=== PATIENT | female | born 1955 | race Caucasian/White ===

== ENCOUNTER 2019-11-03 06:42 | Observation (INO) ==
--- NOTE | 2019-10-24 14:53 | PAT Medication Instructions ---
Medication Instructions Date of Service October 24, 2019 Home Medications azelastine 0.15 % (205.5 mcg) nasal spray 1 sprays INTNAS BID fluoxetine 10 mg capsule 10 mg PO QAM fluticasone propionate 50 mcg/actuation nasal spray,suspension 1 sprays INTNAS BID montelukast 10 mg tablet 10 mg PO QAM calcium carbonate 500 mg calcium (1,250 mg) chewable tablet 1,000 mg PO QPM omeprazole 20 mg capsule,delayed release 20 mg PO QAM polyethylene glycol 3350 1 dose PO UD PRN sodium chloride 0.65 % nasal spray aerosol 2 sprays INTNAS QID PRN acetaminophen [Tylenol Extra Strength] 500 mg PO Q6H PRN albuterol sulfate 1 puff INHALATION QID PRN fluticasone propion-salmeterol [Advair HFA] 2 puff INHALATION BID lisinopril 20 mg PO QAM ondansetron HCl [Zofran] 4 - 8 mg PO Q6H PRN DO NOT take the morning of surgery montelukast 10 mg tablet 10 mg PO QAM lisinopril 20 mg PO QAM polyethylene glycol 3350 1 dose PO UD PRN Take morning of surgery With a small sip of water, OTHERWISE NOTHING TO EAT OR DRINK AFTER MIDNIGHT: azelastine 0.15 % (205.5 mcg) nasal spray 1 sprays INTNAS BID fluoxetine 10 mg capsule 10 mg PO QAM fluticasone propionate 50 mcg/actuation nasal spray,suspension 1 sprays INTNAS BID omeprazole 20 mg capsule,delayed release 20 mg PO QAM sodium chloride 0.65 % nasal spray aerosol 2 sprays INTNAS QID PRN (if needed) acetaminophen [Tylenol Extra Strength] 500 mg PO Q6H PRN (okay to take up to 4 hours prior to surgery if needed) albuterol sulfate 1 puff INHALATION QID PRN (use if needed; please bring with you to hospital day of surgery if possible) fluticasone propion-salmeterol [Advair HFA] 2 puff INHALATION BID ondansetron HCl [Zofran] 4 - 8 mg PO Q6H PRN (if needed) Take evening before surgery azelastine 0.15 % (205.5 mcg) nasal spray 1 sprays INTNAS BID fluoxetine 10 mg capsule 10 mg PO QAM fluticasone propionate 50 mcg/actuation nasal spray,suspension 1 sprays INTNAS BID calcium carbonate 500 mg calcium (1,250 mg) chewable tablet 1,000 mg PO QPM polyethylene glycol 3350 1 dose PO UD PRN (if needed) sodium chloride 0.65 % nasal spray aerosol 2 sprays INTNAS QID PRN (if needed) acetaminophen [Tylenol Extra Strength] 500 mg PO Q6H PRN (if needed) albuterol sulfate 1 puff INHALATION QID PRN (if needed) fluticasone propion-salmeterol [Advair HFA] 2 puff INHALATION BID ondansetron HCl [Zofran] 4 - 8 mg PO Q6H PRN (if needed) Other Notes If you have any questions please call us at [phone] or [phone] or [phone] or [phone]
--- NOTE | 2019-10-27 11:07 | Anesthesiology Consultation ---
Date of Service October 27, 2019 Assessment & Plan (1) Encounter for pre-operative examination: COVID Status: As of 10/26 assessment, patient denies travel to endemic area, known exposure/sick contacts, or symptoms of COVID19. Patient instructed that they and their household members must follow strict social distancing guidelines, wear a mask in public and avoid travel for 14 days prior to surgery. Preoperative COVID19 testing to be completed prior to surgery per surgeon's arrangements. Patient made aware to self-isolate as much as possible between COVID testing and surgery. *Patient with recent L sided rib fractures s/p mechanical fall (evaluated in ED, led to discovery of renal mass). CAUTION WITH POSITIONING. Chart Review Chart Review: Acceptable Risk for Surgery and Patient seen in Pre Admission Testing Teaching & Discussion Instructed NPO after midnight before surgery, except medications with 15 cc of water. Medication instructions provided according to the PAT guidelines. History Surgery Operation Date: 11/03/19 09:35 Proposed Procedures p Right Robotic Laparoscopic Assisted Partial Nephrectomy - Mike Wheeler, Height/Weight Height: 5 ft 4 in Weight: 109.769 kg Allergies Allergy/AdvReac Type Severity Reaction Status Date / Time No Known Allergies Allergy Verified 10/19/19 12:20 Medications Home Medications Medication Instructions Recorded Confirmed Last Taken azelastine 0.15 % (205.5 mcg) 1 sprays INTNAS BID 10/07/19 10/19/19 Unknown nasal spray fluoxetine 10 mg capsule 10 mg PO QAM 10/07/19 10/19/19 Unknown fluticasone propionate 50 1 sprays INTNAS BID 10/07/19 10/19/19 Unknown mcg/actuation nasal spray,suspension montelukast 10 mg tablet 10 mg PO QAM 10/07/19 10/19/19 Unknown calcium carbonate 500 mg calcium 1,000 mg PO QPM tab 10/12/19 10/19/19 Unknown (1,250 mg) chewable tablet omeprazole 20 mg capsule,delayed 20 mg PO QAM 10/12/19 10/19/19 Unknown release polyethylene glycol 3350 1 dose PO UD PRN 10/12/19 10/19/19 Unknown sodium chloride 0.65 % nasal spray 2 sprays INTNAS QID PRN 10/12/19 10/19/19 Unknown aerosol acetaminophen [Tylenol Extra 500 mg PO Q6H PRN 10/19/19 10/19/19 Unknown Strength] albuterol sulfate 1 puff INHALATION QID PRN 10/19/19 10/19/19 Unknown fluticasone propion-salmeterol 2 puff INHALATION BID 10/19/19 10/19/19 Unknown [Advair HFA] lisinopril 20 mg PO QAM 10/19/19 10/19/19 Unknown ondansetron HCl [Zofran] 4 - 8 mg PO Q6H PRN 10/19/19 10/19/19 Unknown Past Medical History Medical History (Updated 10/28/19 @ 10:34 by Sher Rose) Anxiety Asthma uses PRN INH at least once per day, Advair BID Benign thyroid cyst Constipation Depression Fall recent fall 10/01/2019 - tripped over dog -- left rib fractures GERD (gastroesophageal reflux disease) Hiatal hernia HTN (hypertension) Kidney mass Osteoarthritis Sleep apnea CPAP, not using at all for the past year due to sinus issues Tachycardia Recent workup by PCP included stress test and Zio patch. No sustained arrhythmias, few runs of SVT. No ischemia on stress echo. Exercise / Class Metabolic Activity II 4-5 Yardwork/Stairs/Walk up hill (Does 12 steps at home many times per day, some mild VILLALPANDO but denies any chest pain) Past Family History Family History Mother Nephrolithiasis Hypertension Other No family history of adverse response to anesthesia Past Surgical History Surgical History H/O section History of appendectomy History of cholecystectomy History of colonoscopy History of esophagogastroduodenoscopy (EGD) History of hysterectomy History of tooth extraction Nausea and vomiting after administration of anesthetic agent Past Anesthesia History No Hx of Anesthesia Complications (other than PONV) and No Family Hx of Anesthesia Complications History of PONV History of PONV and Hx of Motion Sickness Social History Smoking Status: Never smoker Do You Dip or Chew Tobacco: No Hx Alcohol Use: Yes Alcohol type: beer and wine alcohol intake frequency: a few times a month Hx Substance Use: No substance use type: does not use Review of Systems Pt denies any recent chest pain, shortness of breath, cough, fever, URI. +sinus drainage with reflexive cough, chronic; +palpitations occasionally; +acid reflux, improved with PPI but still has occasionally Physical Exam Vital Signs BP: 133/81 P: 108bpm SPO2: 96% RA T: 99.0 F R: 16 Constitutional + morbidly obese ENNM Mouth: + dental restorations (partials but does not wear); no chipped teeth and no loose teeth Thyromental Distance: > or= 3.5 Finger Breadths (3.5) Mallampati Class: I Neck normal visual inspection and + short neck; neck extension not limited Respiratory normal respiratory effort Auscultation: lungs clear to auscultation bilaterally Cardiovascular Rate/Rhythm: regular rhythm and + tachycardic Heart Sounds: no murmur Extremities: no edema Testing Laboratory Results 10/27/19 10:58 10/27/19 10:58 Blood Type A Negative 10/27/19 10:58 Antibody Screen NEGATIVE 10/27/19 10:58 Electrocardiogram Date: 10/05/19 Findings: + ST @ (102bpm) Chest X-Ray Date: 10/05/19 IMPRESSION: 1. Acute nondisplaced fracture of the anterior left sixth rib. Trace left pleural effusion without pneumothorax. 2. No acute intra-abdominal or intrapelvic abnormality. 3. Indeterminate ovoid soft tissue attenuating lesion of the left upper retrosternal tissues inferior to the left thyroid lobe measures approximately 3.0 cm in greatest dimension. Correlation with a follow-up nonemergent ultrasound is recommended to better characterize. 4. Enhancing lesion of the inferior pole right kidney measuring 2.1 x 2.3 is suggestive of a probable renal cell carcinoma. Urology consultation is needed. 5. Nonobstructing left nephrolithiasis. Stress Test Date: 09/06/19 Findings: no ischemia Resting EF: 65-69% Resting LV Function: normal
[2019-10-27 11:31] LABS: Basophils # (auto) 0.04 K/uL (0-0.2); Basophils % (auto) 0.5 %; Eosinophils # (auto) 0.06 K/uL (0-0.5); Eosinophils % (auto) 0.7 %; Hematocrit (blood only) 40.6 % (37-47); Hemoglobin 13.5 g/dL (12.0-16.0); Immature Granulocytes # (auto) 0.01 K/uL (0.00-0.02); Immature Granulocytes % (auto) 0.1 %; Lymphocytes # (auto) 2.05 K/uL (1.2-3.4); Lymphocytes % (auto) 25.5 %; Mean Corpuscular Hemoglobin 29.8 pg (25-34); Mean Corpuscular Hgb Conc 33.3 g/dL (32-36); Mean Corpuscular Volume 89.6 fL (80-100); Mean Platelet Volume 8.5 fL (7.4-10.4); Monocytes # (auto) 0.64 K/uL (0.11-0.59); Neutrophils # (auto) 5.25 K/uL (1.4-6.5); Neutrophils % (auto) 65.2 %; Platelet Count 260 K/uL (130-400); RDW Coefficient of Variation 13.4 % (11.5-14.5); RDW Standard Deviation 44.1 fL (36.4-46.3); Red Blood Count 4.53 M/uL (4.2-5.4); White Blood Count 8.05 K/uL (4.8-10.8)
[2019-10-27 12:53] LABS: Calcium 8.9 mg/dl (8.5-10.1); Creatinine Clr Calc Pharmacy 74.2 ml/min; Est GFR (African American) 74.8; Est GFR (Non-African American) 64.6; Potassium 4.2 mmol/L (3.5-5.1)
[~2019-11-03 06:42] MED LIST: CEFAZOLIN 2000MG 2,000 MG/15 ML SYR IV SCH; CHECK SCOPOLAMINE PATCH PLACEMENT SCH; LACTATED RINGER'S 1,000 ML IV SCH; LR 15ML/HR IV SCH; SCOPOLAMINE 1.5 MG TDSY TD SCH
[2019-11-03] MEDS ORDERED: MANNITOL 25% 12.5 GM/50 ML VIAL IV ONE ×2 (07:27→07:46)
[2019-11-03] MEDS ORDERED: LIDOCAINE HCL 2% 2 ML VIAL/AMP(20MG/ML) INFIL ONE (07:38)
[2019-11-03] MEDS ORDERED: ONDANSETRON INJ 2 MG/ML 2 ML VIAL ONE ×2 (07:38→10:13)
[2019-11-03] MEDS ORDERED: fentaNYL citrate 100 MCG/2 ML VIAL ONE ×2 (07:38→14:43)
[2019-11-03] MEDS ORDERED: MIDAZOLAM HCL 1 MG/ML 2ML VIAL ONE (07:38)
[2019-11-03] MEDS ORDERED: PROPOFOL IV EMULSION 10 MG/ML 20 ML VIAL IV ONE (07:38)
[2019-11-03] MEDS ORDERED: ROCURONIUM BROMIDE 10 MG/ML 5 ML VIAL IV ONE ×12 (07:39→12:09)
[2019-11-03] MEDS ORDERED: ATROPINE SULFATE 0.1 MG/ML 10ML SYR IV PRN (07:45)
[2019-11-03] MEDS ORDERED: ePHEDrine sulfate 50 MG/ML AMP IV PRN (07:45)
[2019-11-03] MEDS ORDERED: HYDROmorphone INJ 1 MG/ML SYRINGE IV PRN (07:45)
[2019-11-03] MEDS ORDERED: ONDANSETRON INJ 2 MG/ML 2 ML VIAL IV PRN (07:45)
[2019-11-03] MEDS ORDERED: SODIUM CHLORIDE 0.9% INJ 10 ML VIAL ONE (07:49)
--- NOTE | 2019-11-03 07:56 | History & Physical Bridge Note ---
Date of Service November 03, 2019 History & Physical Bridge Note I have examined the patient, reviewed the History & Physical and in the interval since the performance of the History & Physical I have noted the following changes of clinical significance: no changes noted
[2019-11-03] MEDS ORDERED: BUPIVACAINE 0.5 % 5 MG/1 ML MPF 30ML VIAL ONE (08:14)
[2019-11-03] MEDS ORDERED: ALBUMIN HUMAN 5% 12.5 GM/250 ML VIAL IV ONE (08:54)
[2019-11-03] MEDS ORDERED: PHENYLEPHRINE 100MCG/ML 5ML SYR ONE (09:55)
[2019-11-03] MEDS ORDERED: DEXAMETHASONE SOD INJ 4 MG/ML VIAL ONE ×2 (10:01)
[2019-11-03] MEDS ORDERED: ePHEDrine sulfate 50 MG/ML SYR ONE (10:05)
[2019-11-03] MEDS ORDERED: NEOSTIGMINE METHYLSULFATE 5 MG/5 ML SYR ONE (10:13)
[2019-11-03] MEDS ORDERED: GLYCOPYRROLATE 0.2 MG/ML VIAL ONE (10:13)
[2019-11-03] MEDS ORDERED: HYDROmorphone INJ 2 MG/ML SYR/VIAL ONE (10:18)
[2019-11-03] MEDS ORDERED: TISSEEL FIBRIN SEALANT 4ML TOP ONE (11:12)
[2019-11-03] MEDS ORDERED: SURGICEL ABSORB HEMOSTAT 2IN X 14IN TOP ONE (11:58)
[2019-11-03] MEDS ORDERED: FLOSEAL HEMOSTATIC MATRIX 10ML TOP ONE (11:58)
--- NOTE | 2019-11-03 12:56 | Post Operative Brief Note ---
PG Immediate Post Op with CF Date of Surgery November 03, 2019 Pre & Post Diagnosis Operation Date: 11/03/19 08:15 Pre-Op Diagnosis: Right Kidney Mass Post-Op Diagnosis: Right Kidney Mass I identified the patient and participated in the time-out.: Yes Procedure Operation Date: 11/03/19 08:15 Actual Procedures p Robotic Assisted Laparoscopic Right Partial Nephrectomy and Extensive Lysis of Adhesions(Right) - Mike Wheeler, Surgeon Mike Wheeler, II, DO [employer] Estimated Blood Loss 100 Findings Consistent with Post-Op Diagnosis Specimens Specimen Description: A. Right renal mass Drains Mary Catheter and Stan-Jorge Drain (10mm FLat) Anesthesia Type General Complications none Disposition Disposition: Recovery Room Overlapping Procedure I was present for: the critical portions of procedure. I was immediately available: during the entire case. Back up surgeon: used during listed procedure.
[2019-11-03] MEDS: fentaNYL citrate 100 MCG/2 ML VIAL IV PRN ×4 (13:39→13:54)
[2019-11-03 13:44] LABS: Basophils # (auto) 0.02 K/uL (0-0.2); Basophils % (auto) 0.2 %; Eosinophils # (auto) 0.01 K/uL (0-0.5); Eosinophils % (auto) 0.1 %; Hematocrit (blood only) 36.9 % (37-47); Immature Granulocytes # (auto) 0.03 K/uL (0.00-0.02); Immature Granulocytes % (auto) 0.3 %; Lymphocytes # (auto) 0.67 K/uL (1.2-3.4); Lymphocytes % (auto) 6.2 %; Mean Corpuscular Hemoglobin 29.6 pg (25-34); Mean Corpuscular Volume 90.9 fL (80-100); Mean Platelet Volume 8.2 fL (7.4-10.4); Monocytes % (auto) 0.9 %; Neutrophils # (auto) 10.06 K/uL (1.4-6.5); Neutrophils % (auto) 92.3 %; Platelet Count 225 K/uL (130-400); RDW Coefficient of Variation 13.4 % (11.5-14.5); RDW Standard Deviation 44.3 fL (36.4-46.3); Red Blood Count 4.06 M/uL (4.2-5.4); White Blood Count 10.89 K/uL (4.8-10.8)
[2019-11-03 13:45] LABS: Mean Corpuscular Hgb Conc 32.5 g/dL (32-36)
[2019-11-03 14:03] LABS: BUN Creatinine Ratio 13.6 (10-20); Calcium 7.9 mg/dl (8.5-10.1); Creatinine Clr Calc Pharmacy 67.3 ml/min; Est GFR (Non-African American) 57.8; Potassium 4.1 mmol/L (3.5-5.1)
--- NOTE | 2019-11-03 14:44 | Anesthesiology Progress Note ---
Date of Service November 03, 2019 Anesthesia Post Procedure Vital Signs Vital Signs: Temp Pulse Pulse Resp BP BP Pulse Ox 11/03/19 14:24 37.2 C 95 H 18 126/81 94 11/03/19 14:10 37.2 C 95 H 18 128/76 94 11/03/19 14:00 95 H 18 130/72 94 11/03/19 13:50 37.2 C 92 H 18 133/73 92 11/03/19 13:40 92 H 18 140/76 94 11/03/19 13:30 93 H 18 113/65 94 11/03/19 13:20 91 H 18 104/64 94 11/03/19 13:11 36.7 C 112 H 18 110/65 94 11/03/19 07:19 36.7 C 102 H 20 167/96 H 96 Transfer of Care Handoff Completed per policy Notes Mental Status: alert / awake / arousable and participated in evaluation Patient Amnestic to Procedure: Yes Nausea / Vomiting: adequately controlled Pain: adequately controlled Airway Patency, RR, SpO2: stable & adequate BP & HR: stable & adequate Hydration State: stable & adequate Anesthetic Complications: no major complications apparent and Pt Satisfied with anesthetic care
[2019-11-03] MEDS ORDERED: ALBUTEROL HFA 8 GM INHALER INH PRN (14:59)
[2019-11-03] MEDS: MoRPHine SULFATE 2 MG/ML CARP IV PRN ×3 (16:22→23:05)
[2019-11-03] MEDS: DOCUSATE SODIUM 100 MG CAP PO SCH ×2 (16:24→21:25)
[2019-11-03] MEDS: CEFAZOLIN 2000MG 2,000 MG/15 ML SYR IV SCH ×2 (16:57→23:05)
[2019-11-03] MEDS: D5W AND 1/2NSS + 20MEQ KCL 20 MEQ/1,000 ML BAG IV SCH (16:57)
[2019-11-03] MEDS: FLUTICASONE PROPIONATE NA SPR 16 GM BTL SCH ×2 (16:59→21:25)
[2019-11-03] MEDS: lisinopriL 20 MG TAB PO SCH (17:01)
[2019-11-03] MEDS: FLUOXETINE HCL 10 MG CAP PO SCH (17:02)
[2019-11-03] MEDS: MONTELUKAST SODIUM 10 MG TABLET PO SCH (17:02)
[2019-11-03] MEDS: PANTOprazole 40 MG TAB PO SCH (17:03)
[2019-11-03] MEDS: ONDANSETRON INJ 2 MG/ML 2 ML VIAL IV PRN (17:26)
[2019-11-03] MEDS: OXYCODONE HCL IR 5 MG TAB (IMMEDIATE RELEASE) PO PRN ×2 (17:26→21:25)
[2019-11-03] MEDS: CHECK SCOPOLAMINE PATCH PLACEMENT SCH ×2 (19:03→23:10)
[2019-11-03] MEDS: CALCIUM CARBONATE 1250MG TAB PO SCH (21:25)
--- NOTE | 2019-11-03 22:48 | Anesthesiology Progress Note ---
Date of Service November 03, 2019 Subjective I was called by nursing 2/2 patient complaining of right eye irritation. The patient states having right eye irritation after her procedure. She states having some blurriness in her right eye with some improvement. There is no obvious deformity to the eye. I spoke to the patient of the likelihood of having a corneal abrasion. I ordered erythromycin ointment. I told the patient that if her vision or eye pain worsened, she would need to notify her nurse. The patient was understanding. I updated the patient's nurse. Physical Exam Vital Signs: Last Vital Signs Temp 98.1 F 11/03/19 17:48 Pulse 110 H 11/03/19 17:48 Resp 18 11/03/19 17:48 BP 143/82 H 11/03/19 17:48 Pulse Ox 92 11/03/19 17:48 Results & Data Medications Administered Calcium Carbonate (Os-Cuauhtemoc 500) 1,250 mg PO QPM INDER Stop: 12/03/19 20:59 Last Admin: 11/03/19 21:25 Dose: 1,250 mg Documented by: [id number] Docusate Sodium (Colace) 100 mg PO BID INDER Stop: 12/03/19 14:58 Last Admin: 11/03/19 21:25 Dose: 100 mg Documented by: [id number] Admin: 11/03/19 16:24 Dose: 100 mg Documented by: [id number] Fluoxetine HCl (Prozac) 10 mg PO QAM INDER Stop: 12/03/19 14:58 Last Admin: 11/03/19 17:02 Dose: 10 mg Documented by: [id number] Fluticasone Propionate (Flonase) 1 sprays NA BID INDER Stop: 12/03/19 14:58 Last Admin: 11/03/19 21:25 Dose: 1 sprays Documented by: [id number] Admin: 11/03/19 16:59 Dose: 1 sprays Documented by: [id number] Lactated Ringer's (Lr) 1,000 mls @ 15 mls/hr IV .Q24H INDER Stop: 11/04/19 05:59 Last Infusion: 11/03/19 08:26 Dose: 0 mls/hr Documented by: [id number] Admin: 11/03/19 07:23 Dose: 15 mls/hr Documented by: [id number] Lactated Ringer's (Lr) 1,000 mls @ 15 mls/hr IV .Q24H [facility] Stop: 11/04/19 05:59 Last Admin: 11/03/19 07:33 Dose: Not Given Documented by: [id number] Potassium Chloride/Dextrose/Sod Cl (D5w And 1/2nss + 20meq Kcl) 20 meq in 1,000 mls @ 70 mls/hr IV .[id number] [facility] Stop: 12/03/19 15:29 Last Admin: 11/03/19 16:57 Dose: 70 mls/hr Documented by: [id number] Cefazolin Sodium (Ancef 2000mg) 2,000 mg in 15 mls @ 3.75 mls/min IV Q8H [facility]; Protocol Stop: 11/04/19 15:59 Last Admin: 11/03/19 16:57 Dose: 3.75 mls/min Documented by: [id number] Lisinopril (Zestril) 20 mg PO [facility] Stop: 12/03/19 14:58 Last Admin: 11/03/19 17:01 Dose: 20 mg Documented by: [id number] Miscellaneous (Check Scopolamine Patch Placement) 1 ea N/A QS [facility] Stop: 12/03/19 00:00 Last Admin: 11/03/19 19:03 Dose: Not Given Documented by: [id number] Admin: 11/03/19 19:03 Dose: Not Given Documented by: [id number] Admin: 11/03/19 19:03 Dose: Not Given Documented by: [id number] Miscellaneous (Order Awaiting Action) 1 ea N/A BID [facility] Stop: 12/03/19 20:59 Last Admin: 11/03/19 19:35 Dose: Not Given Documented by: [id number] Montelukast Sodium (Singulair) 10 mg PO [facility] Stop: 12/03/19 14:58 Last Admin: 11/03/19 17:02 Dose: 10 mg Documented by: [id number] Morphine Sulfate (Morphine Sulfate) 2 mg IV Q3H PRN PRN Reason: MILD Pain (Scale 1,2,3) Stop: 11/17/19 14:58 Last Admin: 11/03/19 19:26 Dose: 2 mg Documented by: [id number] Admin: 11/03/19 16:22 Dose: 2 mg Documented by: [id number] Ondansetron HCl (Zofran) 4 mg IV Q6H PRN PRN Reason: Nausea And Vomiting Stop: 12/03/19 14:58 Last Admin: 11/03/19 17:26 Dose: 4 mg Documented by: [id number] Oxycodone HCl (Roxicodone Immediate Rel) 5 mg PO Q4H PRN PRN Reason: MODERATE Pain (Scale 4,5,6) Stop: 11/17/19 14:58 Last Admin: 11/03/19 21:25 Dose: 5 mg Documented by: [id number] Admin: 11/03/19 17:26 Dose: 5 mg Documented by: [id number] Pantoprazole Sodium (Protonix) 40 mg PO [facility] Stop: 12/03/19 14:58 Last Admin: 11/03/19 17:03 Dose: 40 mg Documented by: [id number]
[2019-11-03] MEDS ORDERED: Nursing to Pharmacy Communication SCH (23:00)
[2019-11-03] MEDS: ERYTHROMYCIN OP OINT 1 GM PKT OP SCH (23:02)
[2019-11-04] MEDS: ONDANSETRON INJ 2 MG/ML 2 ML VIAL IV PRN ×3 (01:37→20:10)
[2019-11-04] MEDS: OXYCODONE HCL IR 5 MG TAB (IMMEDIATE RELEASE) PO PRN ×5 (01:37→17:00)
[2019-11-04] MEDS: MoRPHine SULFATE 2 MG/ML CARP IV PRN ×5 (04:17→19:53)
[2019-11-04] MEDS: D5W AND 1/2NSS + 20MEQ KCL 20 MEQ/1,000 ML BAG IV SCH ×2 (04:17→19:47)
[2019-11-04] MEDS ORDERED: ERYTHROMYCIN OP OINT 1 GM PKT OP SCH (08:00)
--- NOTE | 2019-11-04 08:13 | Anesthesiology Progress Note ---
Date of Service November 04, 2019 Anesthesia Post Procedure Vital Signs Vital Signs: Temp Pulse Pulse Pulse Resp BP Pulse Ox 11/04/19 07:00 36.8 C 97 H 16 105/68 90 11/04/19 04:12 36.8 C 100 H 14 103/70 90 11/03/19 23:35 36.7 C 105 H 15 116/70 91 11/03/19 17:48 36.7 C 110 H 18 143/82 H 92 11/03/19 16:44 37.2 C 102 H 18 128/78 93 11/03/19 15:49 36.9 C 105 H 18 142/82 H 93 11/03/19 15:26 36.6 C 105 H 18 111/71 94 11/03/19 14:45 36.8 C 101 H 18 123/76 93 11/03/19 14:24 37.2 C 95 H 18 126/81 94 11/03/19 14:10 37.2 C 95 H 18 128/76 94 11/03/19 14:00 95 H 18 130/72 94 11/03/19 13:50 37.2 C 92 H 18 133/73 92 11/03/19 13:40 92 H 18 140/76 94 11/03/19 13:30 93 H 18 113/65 94 11/03/19 13:20 91 H 18 104/64 94 11/03/19 13:11 36.7 C 112 H 18 110/65 94 Notes Mental Status: alert / awake / arousable and participated in evaluation Nausea / Vomiting: adequately controlled Pain: adequately controlled Airway Patency, RR, SpO2: stable & adequate BP & HR: stable & adequate Hydration State: stable & adequate Anesthetic Complications: no major complications apparent
[2019-11-04] MEDS: CEFAZOLIN 2000MG 2,000 MG/15 ML SYR IV SCH (08:14)
[2019-11-04] MEDS: DOCUSATE SODIUM 100 MG CAP PO SCH ×2 (08:21→20:15)
[2019-11-04] MEDS: CHECK SCOPOLAMINE PATCH PLACEMENT SCH ×2 (08:21→15:26)
[2019-11-04] MEDS: FLUTICASONE PROPIONATE NA SPR 16 GM BTL SCH ×2 (08:21→20:13)
[2019-11-04] MEDS: ERYTHROMYCIN OP OINT 1 GM PKT OP SCH ×4 (08:21→20:15)
[2019-11-04] MEDS: PANTOprazole 40 MG TAB PO SCH (08:22)
[2019-11-04] MEDS: FLUOXETINE HCL 10 MG CAP PO SCH (08:22)
[2019-11-04] MEDS: MONTELUKAST SODIUM 10 MG TABLET PO SCH (08:23)
[2019-11-04] MEDS: lisinopriL 20 MG TAB PO SCH (08:23)
[2019-11-04] MEDS: FLUTICASONE/VILANTEROL 200/25MCG 14 PUFFS/INHALER INH SCH (08:24)
[2019-11-04 08:37] LABS: Basophils # (auto) 0.01 K/uL (0-0.2); Basophils % (auto) 0.1 %; Eosinophils # (auto) 0.03 K/uL (0-0.5); Eosinophils % (auto) 0.4 %; Hematocrit (blood only) 32.1 % (37-47); Hemoglobin 10.7 g/dL (12.0-16.0); Immature Granulocytes # (auto) 0.01 K/uL (0.00-0.02); Immature Granulocytes % (auto) 0.1 %; Lymphocytes # (auto) 1.64 K/uL (1.2-3.4); Lymphocytes % (auto) 19.3 %; Mean Corpuscular Hemoglobin 30.1 pg (25-34); Mean Corpuscular Hgb Conc 33.3 g/dL (32-36); Mean Corpuscular Volume 90.4 fL (80-100); Mean Platelet Volume 8.2 fL (7.4-10.4); Monocytes # (auto) 0.86 K/uL (0.11-0.59); Monocytes % (auto) 10.1 %; Neutrophils # (auto) 5.95 K/uL (1.4-6.5); Platelet Count 212 K/uL (130-400); RDW Coefficient of Variation 13.4 % (11.5-14.5); RDW Standard Deviation 44.9 fL (36.4-46.3); Red Blood Count 3.55 M/uL (4.2-5.4)
[2019-11-04] MEDS: ACETAMINOPHEN 325 MG TAB PO PRN (08:59)
[2019-11-04 09:02] LABS: Albumin Level 3.2 gm/dl (3.4-5.0); BUN Creatinine Ratio 11.4 (10-20); Bilirubin,Total 0.4 mg/dl (0.2-1); Calcium 7.9 mg/dl (8.5-10.1); Creatinine Clr Calc Pharmacy 69.3 ml/min; Est GFR (African American) 69.4; Est GFR (Non-African American) 59.9; Globulin 3.1 gm/dl (2.5-4.0); Total Protein 6.3 gm/dl (6.4-8.2)
--- NOTE | 2019-11-04 13:06 | Urology Progress Note ---
Date of Service November 04, 2019 Assessment & Plan (1) Renal mass: POD1 s/p RAL Partial Nx on Right. Dizzy today. No bleeding. No major issues. Increasing activity later today. Tolerating diet. Drain in place. Mary out today. Shoulder and rib pain. Tolerating pain control. Likely stay until tomorrow. Subjective Postop from urologic surgery. Patient has been tolerating well, but is having some pain and discomfort. Incisions have been mild sore. Having some abdominal distension/gas pains. Has tolerated catheter. Has not had severe pain or uncontrollable pain. Patient has been ambulating. Has not had bowel movement or major change. No new nausea or vomiting. Had tolerated anesthesia without major problems Tolerated liquid diet postoperatively. Review of Systems Review of Systems: All systems reviewed & are unremarkable except as noted in HPI & below Physical Exam Physical Exam: General: Alert in no acute distress. HEENT: Normocephalic Atraumatic. Inspection normal. Cranial Nerves 2-12 Grossly intact. Normal inspection of face. Normal inspection of neck. Psychologic: Normal affect. Respiratory: Nonlabored. No use of accessory muscles. No tachypnea or dyspnea. Cardiovascular: No tachycardia Skin: [place] and Dry. No rashes or visible lesions. Extremities/Lymphatics: No edema Abdomen: Appropriately tender. Mild distended. No rebound or guarding. Wound: Clean, dry, covered. Results & Data Vital Signs (Past 12 Hours) Vital Signs Temp Pulse Resp BP Pulse Ox 11/04/19 12:00 36.9 C 84 18 110/71 90 11/04/19 07:00 36.8 C 97 H 16 105/68 90 11/04/19 04:12 36.8 C 100 H 14 103/70 90 PG Care Time/CCT Total # of Minutes Spent Total Time Spent with Patient: Total time spent is greater than 50% in coordination of care (as documented) at patient's floor/unit and/or counseling patient: Coding Level of Care Code 10215 Subseq Hosp Care Lvl 3 Diagnoses Renal mass N28.89
[2019-11-04] MEDS: CALCIUM CARBONATE 1250MG TAB PO SCH (20:16)
[2019-11-05] MEDS: ACETAMINOPHEN 325 MG TAB PO PRN ×3 (00:39→20:56)
[2019-11-05] MEDS: MoRPHine SULFATE 2 MG/ML CARP IV PRN ×3 (00:39→14:00)
[2019-11-05] MEDS: CHECK SCOPOLAMINE PATCH PLACEMENT SCH ×4 (00:44→23:43)
[2019-11-05] MEDS: OXYCODONE HCL IR 5 MG TAB (IMMEDIATE RELEASE) PO PRN ×3 (04:43→20:56)
[2019-11-05] MEDS: POLYETHYLENE (MIRALAX) 17 GM PACK PO PRN (06:05)
--- NOTE | 2019-11-05 09:27 | Urology Progress Note ---
Date of Service November 05, 2019 Assessment & Plan (1) Renal mass: POD2 s/p RAL Partial Nx on Right. Tolerating diet. Increasing activity. Pain better controlled. Labs this AM. No other major issues or changes. Working on increasing activity and tolerating home activities. Okay to wash later today. Okay to bandage as needed. Pain meds and stool softener perscibed for home. Subjective Postop Day 2 from urologic surgery. Patient has been tolerating well, but is having some pain and discomfort. Incisions have been mild sore. Having some abdominal distension/gas pains. Has tolerated catheter. Has not had severe pain or uncontrollable pain. Patient has started ambulating. Has not had bowel movement or major change. No new nausea or vomiting. Had tolerated anesthesia without major problems. Was having shoulder and flank pain but improving. Tolerated liquid diet postoperatively. Review of Systems Review of Systems: All systems reviewed & are unremarkable except as noted in HPI & below Physical Exam Physical Exam: General: Alert in no acute distress. HEENT: Normocephalic Atraumatic. Inspection normal. Cranial Nerves 2-12 Grossly intact. Normal inspection of face. Normal inspection of neck. Psychologic: Normal affect. Respiratory: Nonlabored. No use of accessory muscles. No tachypnea or dyspnea. Cardiovascular: No tachycardia Skin: [place] and Dry. No rashes or visible lesions. Extremities/Lymphatics: No edema Abdomen: Appropriately tender. Mild distended. No rebound or guarding. Wound: Clean, dry, covered. Results & Data Vital Signs (Past 12 Hours) Vital Signs Temp Pulse Pulse Resp BP BP Pulse Ox 11/05/19 07:50 36.4 C L 92 H 16 105/68 94 11/05/19 00:30 36.8 C 89 18 104/66 95 11/05/19 00:20 100 H 24 118/81 94 PG Care Time/CCT Total # of Minutes Spent Total Time Spent with Patient: Total time spent is greater than 50% in coordination of care (as documented) at patient's floor/unit and/or counseling patient: Coding Level of Care Code 85649 Subseq Hosp Care Lvl 3 Diagnoses Renal mass N28.89
[2019-11-05 09:39] LABS: Hematocrit (blood only) 33.3 % (37-47); Hemoglobin 10.9 g/dL (12.0-16.0); Mean Corpuscular Hgb Conc 32.7 g/dL (32-36); Mean Corpuscular Volume 91.7 fL (80-100); Mean Platelet Volume 8.3 fL (7.4-10.4); Platelet Count 212 K/uL (130-400); RDW Coefficient of Variation 13.6 % (11.5-14.5); RDW Standard Deviation 45.6 fL (36.4-46.3); Red Blood Count 3.63 M/uL (4.2-5.4); White Blood Count 7.34 K/uL (4.8-10.8)
[2019-11-05] MEDS: D5W AND 1/2NSS + 20MEQ KCL 20 MEQ/1,000 ML BAG IV SCH ×2 (09:57→23:42)
[2019-11-05 10:04] LABS: BUN Creatinine Ratio 9.9 (10-20); Calcium 8.1 mg/dl (8.5-10.1); Creatinine Clr Calc Pharmacy 71.4 ml/min; Est GFR (Non-African American) 62.2; Potassium 4.3 mmol/L (3.5-5.1)
[2019-11-05] MEDS: DOCUSATE SODIUM 100 MG CAP PO SCH ×2 (10:17→20:55)
[2019-11-05] MEDS: FLUOXETINE HCL 10 MG CAP PO SCH (10:17)
[2019-11-05] MEDS: lisinopriL 20 MG TAB PO SCH (10:17)
[2019-11-05] MEDS: PANTOprazole 40 MG TAB PO SCH (10:17)
[2019-11-05] MEDS: FLUTICASONE/VILANTEROL 200/25MCG 14 PUFFS/INHALER INH SCH (10:18)
[2019-11-05] MEDS: MONTELUKAST SODIUM 10 MG TABLET PO SCH (10:18)
[2019-11-05] MEDS: ERYTHROMYCIN OP OINT 1 GM PKT OP SCH ×4 (10:18→20:55)
[2019-11-05] MEDS: FLUTICASONE PROPIONATE NA SPR 16 GM BTL SCH ×2 (10:18→20:55)
[2019-11-05] MEDS: ONDANSETRON INJ 2 MG/ML 2 ML VIAL IV PRN (11:05)
[2019-11-05] MEDS: CALCIUM CARBONATE 1250MG TAB PO SCH (20:56)
[2019-11-06] MEDS: MoRPHine SULFATE 2 MG/ML CARP IV PRN (00:01)
[2019-11-06] MEDS: OXYCODONE HCL IR 5 MG TAB (IMMEDIATE RELEASE) PO PRN ×5 (04:25→21:33)
[2019-11-06] MEDS: ACETAMINOPHEN 325 MG TAB PO PRN ×3 (04:25→21:32)
[2019-11-06] MEDS: POLYETHYLENE (MIRALAX) 17 GM PACK PO PRN (04:26)
[2019-11-06] MEDS: FLUTICASONE/VILANTEROL 200/25MCG 14 PUFFS/INHALER INH SCH (09:03)
[2019-11-06] MEDS: DOCUSATE SODIUM 100 MG CAP PO SCH ×2 (09:03→21:31)
[2019-11-06] MEDS: FLUTICASONE PROPIONATE NA SPR 16 GM BTL SCH ×2 (09:03→21:31)
[2019-11-06] MEDS: FLUOXETINE HCL 10 MG CAP PO SCH (09:03)
[2019-11-06] MEDS: PANTOprazole 40 MG TAB PO SCH (09:04)
[2019-11-06] MEDS: CHECK SCOPOLAMINE PATCH PLACEMENT SCH ×2 (09:04→15:25)
[2019-11-06] MEDS: lisinopriL 20 MG TAB PO SCH (09:04)
[2019-11-06] MEDS: MONTELUKAST SODIUM 10 MG TABLET PO SCH (09:04)
[2019-11-06] MEDS: ERYTHROMYCIN OP OINT 1 GM PKT OP SCH ×4 (09:04→21:31)
[2019-11-06] MEDS: D5W AND 1/2NSS + 20MEQ KCL 20 MEQ/1,000 ML BAG IV SCH (13:24)
--- NOTE | 2019-11-06 19:30 | Urology Progress Note ---
Date of Service November 06, 2019 Assessment & Plan (1) Renal mass: POD3 s/p RAL Partial Nx on Right for suspicious renal mass for renal cell malignancy. Tolerating diet. Increasing activity. Pain considerably better controlled and drastically better ambulating. No other major issues or changes. Working on increasing activity and tolerating home activities. Okay to wash later today. Okay to bandage as needed. Pain meds and stool softener perscibed for home. Likely home tomorrow. We will plan to likely pull drain Subjective Postop Day 3 from urologic surgery. Patient has been having some increasing pain yesterday but as of this morning she has been doing much better. Otherwise has been tolerating well, but is having some pain and discomfort with movements. She is ambulating considerably better.. Incisions have been mild sore. Having some abdominal distension/gas pains but these are resolving. Catheter was removed. Improved drastically for ambulation. Is now able to transfer in and out of bed with only minor assistance. Tolerating diet much better as well. Had a much more substantial breakfast and lunch. No new nausea or vomiting. Had tolerated anesthesia without major problems. No bowel movement yet but is experiencing some movement or gas Review of Systems Review of Systems: All systems reviewed & are unremarkable except as noted in HPI & below Physical Exam Physical Exam: General: Alert in no acute distress. HEENT: Normocephalic Atraumatic. Inspection normal. Cranial Nerves 2-12 Grossly intact. Normal inspection of face. Normal inspection of neck. Psychologic: Normal affect. Respiratory: Nonlabored. No use of accessory muscles. No tachypnea or dyspnea. Cardiovascular: No tachycardia Skin: [place] and Dry. No rashes or visible lesions. Extremities/Lymphatics: No edema Abdomen: Appropriately tender. Mild distended. No rebound or guarding. Obese. Wound: Clean, dry, covered. Results & Data Vital Signs (Past 12 Hours) Vital Signs Temp Pulse Resp BP BP Pulse Ox 11/06/19 15:21 36.8 C 76 16 125/84 98 11/06/19 08:26 36.7 C 83 16 149/77 H 95 PG Care Time/CCT Total # of Minutes Spent Total Time Spent with Patient: Total time spent is greater than 50% in coordination of care (as documented) at patient's floor/unit and/or counseling patient: Coding Level of Care Code 82271 Subseq Hosp Care Lvl 3 Diagnoses Renal mass N28.89
[2019-11-06] MEDS: CALCIUM CARBONATE 1250MG TAB PO SCH (21:32)
[2019-11-07] MEDS: OXYCODONE HCL IR 5 MG TAB (IMMEDIATE RELEASE) PO PRN ×2 (02:02→08:05)
[2019-11-07] MEDS: D5W AND 1/2NSS + 20MEQ KCL 20 MEQ/1,000 ML BAG IV SCH (03:47)
[2019-11-07] MEDS: ACETAMINOPHEN 325 MG TAB PO PRN ×2 (06:39→11:42)
[2019-11-07] MEDS: POLYETHYLENE (MIRALAX) 17 GM PACK PO PRN ×2 (06:45→11:42)
[2019-11-07 07:12] LABS: Hematocrit (blood only) 32.7 % (37-47); Hemoglobin 10.6 g/dL (12.0-16.0); Mean Corpuscular Hemoglobin 29.4 pg (25-34); Mean Corpuscular Hgb Conc 32.4 g/dL (32-36); Mean Corpuscular Volume 90.8 fL (80-100); Mean Platelet Volume 8.2 fL (7.4-10.4); Platelet Count 215 K/uL (130-400); RDW Coefficient of Variation 13.3 % (11.5-14.5); RDW Standard Deviation 44.1 fL (36.4-46.3); White Blood Count 5.66 K/uL (4.8-10.8)
[2019-11-07 07:37] LABS: BUN Creatinine Ratio 7.8 (10-20); Calcium 8.6 mg/dl (8.5-10.1); Creatinine Clr Calc Pharmacy 77.8 ml/min; Est GFR (African American) 79.9; Potassium 4.2 mmol/L (3.5-5.1)
[2019-11-07] MEDS: FLUTICASONE/VILANTEROL 200/25MCG 14 PUFFS/INHALER INH SCH (08:04)
[2019-11-07] MEDS: DOCUSATE SODIUM 100 MG CAP PO SCH (08:04)
[2019-11-07] MEDS: PANTOprazole 40 MG TAB PO SCH (08:04)
[2019-11-07] MEDS: ERYTHROMYCIN OP OINT 1 GM PKT OP SCH ×2 (08:04→11:43)
[2019-11-07] MEDS: FLUTICASONE PROPIONATE NA SPR 16 GM BTL SCH (08:04)
[2019-11-07] MEDS: lisinopriL 20 MG TAB PO SCH (08:05)
[2019-11-07] MEDS: FLUOXETINE HCL 10 MG CAP PO SCH (08:05)
[2019-11-07] MEDS: MONTELUKAST SODIUM 10 MG TABLET PO SCH (08:05)
--- NOTE | 2019-11-07 10:45 | Urology Progress Note ---
Date of Service November 07, 2019 Assessment & Plan (1) Renal mass: POD4 s/p RAL Partial Nx on Right for suspicious renal mass for renal cell malignancy. Tolerating diet. Increasing activity. Pain considerably better controlled and drastically better ambulating. No other major issues or changes. Working on increasing activity and tolerating home activities. Okay to wash later today. Okay to bandage as needed. Pain meds and stool softener perscibed for home. Drain has low output. No significant issues. Will have nursing remove prior to discharge. Subjective Postop Day 4 from urologic surgery. Continues to improved. Better ambulation. Likely having drain removed. Improved continued for ambulation. Is now able to transfer in and out of bed with only minor assistance. Tolerating diet much better as well. No new nausea or vomiting. Had tolerated anesthesia without major problems. No bowel movement yet but is experiencing some movement or gas Review of Systems Review of Systems: All systems reviewed & are unremarkable except as noted in HPI & below Physical Exam Physical Exam: General: Alert in no acute distress. HEENT: Normocephalic Atraumatic. Inspection normal. Cranial Nerves 2-12 Grossly intact. Normal inspection of face. Normal inspection of neck. Psychologic: Normal affect. Respiratory: Nonlabored. No use of accessory muscles. No tachypnea or dyspnea. Cardiovascular: No tachycardia Skin: [place] and Dry. No rashes or visible lesions. Extremities/Lymphatics: No edema Abdomen: Obese. Mild distended. Wounds clean dry and intact. Results & Data Vital Signs (Past 12 Hours) Vital Signs Temp Pulse Pulse Resp BP Pulse Ox 11/07/19 07:15 36.8 C 80 18 105/65 98 11/06/19 23:05 36.9 C 85 18 110/70 95 PG Care Time/CCT Total # of Minutes Spent Total Time Spent with Patient: Total time spent is greater than 50% in coordination of care (as documented) at patient's floor/unit and/or counseling patient: Coding Level of Care Code 29989 Subseq Hosp Care Lvl 2 Diagnoses Renal mass N28.89
--- NOTE | 2019-11-09 10:11 | Discharge Summary ---
Date of Service November 09, 2019 Admission HPI Per Admitting Provider See H&P Admission Exam Per Admitting Provider See H&P Principal Diagnosis Renal Mass suspicious for malignancy Discharge Exam General: Alert in no acute distress. HEENT: Normocephalic Atraumatic. Inspection normal. Psychologic: Normal affect. Skin: [place] and Dry. No rashes or visible lesions. Abdomen: Soft Non-distended. No rebound or guarding. Discharge Data Allergies Allergy/AdvReac Type Severity Reaction Status Date / Time No Known Allergies Allergy Verified 11/03/19 07:06 Procedures Performed Operation Date: 11/03/19 08:15 Actual Procedures p Robotic Assisted Laparoscopic Right Partial Nephrectomy and Extensive Lysis of Adhesions(Right) - Mike Wheeler, Hospital Course (1) Renal mass: POD4 s/p RAL Partial Nx on Right for suspicious renal mass for renal cell malignancy. Tolerating diet. Increasing activity. Pain considerably better controlled and drastically better ambulating. No other major issues or changes. Working on increasing activity and tolerating home activities. Okay to wash later today. Okay to bandage as needed. Pain meds and stool softener perscibed for home. Drain has low output. No significant issues. Will have nursing remove prior to discharge. Total Time Total Time Spent Total Time Spent (In Minutes): 10 minutes Total Time Includes: Examination of the Patient, Discharge Planning, Medication Reconciliation and Communication With Other Providers Discharge Plan Discharge Items Patient Disposition: Home - Self-Care Reason For Visit: Renal Lesion Discharge Diagnosis: Same Condition on Discharge: Good Activity: Resume your previous activity Lifting: No more than 50 pounds Bathing Comment: Okay to shower today. No hot tubs or baths. Non-emergency contact: Urologist Call non-emergency contact if: you have any medication questions, your symptoms worsen, your pain is not controlled, your pain is worsening, your pain is unusual for you, your pain is concerning for you, you have a fever and your temperature is above 101.5 Follow-up/Referrals: Efra Romero MD [Primary Care Provider] - Diet: Regular Addtl Attending Provider Instructions: Please take all medications as prescribed and keep follow-ups as scheduled. Please call our office at [phone] with any questions, concerns or need to reschedule appointments for any reason. We are happy to assist you. While catheter is in place, please wash with warm soapy water and a fresh washcloth twice a day with mild bar soap (Dove, Dial, etc.). Your nursing visit appointment to have your chance removed should already be made, if you have any question regarding this, please call our office. Please do not drive, drink alcohol or operate machinery while taking prescription pain medication. We recommend continuing a stool softener (i.e. Colace) to prevent constipation/straining for at least two weeks after your procedure. Some blood is to be expected in your urine as you heal, you may even see recurrences of blood in your urine for up to 4-6 months after your procedure. Drink plenty of fluids, avoid sexual or strenuous exercise and do not lift >25 pounds until your follow-up. Call [facility] at [phone] promptly if you experience: Fever of 101F or greater Pain thats not controlled with medicine Trouble urinating or inability to urinate Dark, bloody urine for more than 12 hours Pending Studies at Discharge: No Stand-Alone Forms: [facility], Smoking Cessation Medications and DC Order Prescriptions: New oxycodone 5 mg tablet 5 mg PO Q6H PRN (Reason: pain) Qty: 20 RF: 0 Colace Clear 50 mg capsule 50 mg PO BID Qty: 60 RF: 3 Continued omeprazole 20 mg capsule,delayed release(DR/EC) 20 mg PO QAM RF: 0 polyethylene glycol 3350 1 dose PO UD PRN (Reason: Constipation) RF: 0 sodium chloride [Saline Nasal] 0.65 % aerosol,spray 2 sprays INTNAS QID PRN (Reason: Congestion) RF: 0 calcium carbonate 500 mg calcium (1,250 mg) tablet,chewable 1,000 mg PO QPM RF: 0 fluticasone propionate [Flonase Allergy Relief] 50 mcg/actuation spray,suspension 1 sprays INTNAS BID RF: 0 azelastine 0.15 % (205.5 mcg) spray,non-aerosol 1 sprays INTNAS BID RF: 0 fluoxetine [Prozac] 10 mg capsule 10 mg PO QAM RF: 0 montelukast [Singulair] 10 mg tablet 10 mg PO QAM RF: 0 albuterol sulfate 90 mcg/actuation Hfa Aerosol Inhaler 1 puff INHALATION QID PRN (Reason: sob) RF: 0 Advair HFA 230-21 mcg/actuation Hfa Aerosol Inhaler 2 puff INHALATION BID RF: 0 lisinopril 20 mg Tablet 20 mg PO QAM RF: 0 ondansetron HCl [Zofran] 4 mg Tablet 4 - 8 mg PO Q6H PRN (Reason: Nausea) RF: 0 acetaminophen [Tylenol Extra Strength] 500 mg Tablet 500 mg PO Q6H PRN (Reason: Pain) RF: 0 Discharge Orders: Discharge Order (Routine); Ordered 11/07/19 Ordered By: Mike Wheeler Admission Data Admit Date/Time: 11/03/19 13:17 Attending Provider: Mike Wheeler Admit Provider: Mike Wheeler Primary Care Provider: Efra Romero Other Interventions: Discharge Summary Assessment (RN) Last Done: 11/07/19 13:40 Coding Level of Care Code D/C Day Management <30 mins Diagnoses Renal mass N28.89
--- NOTE | 2019-11-09 10:26 | Operative Report ---
PG Post Operative Report Pre & Post Diagnosis Operation Date: 11/03/19 08:15 Pre-Op Diagnosis: Right Kidney Mass Post-Op Diagnosis: Right Kidney Mass I identified the patient and participated in the time-out.: Yes Procedure Operation Date: 11/03/19 08:15 Actual Procedures p Robotic Assisted Laparoscopic Right Partial Nephrectomy and Extensive Lysis of Adhesions(Right) - Mike Wheeler, Surgeon Mike Wheeler, II, DO Music Autographer Henry Estimated Blood Loss 100 Findings Consistent with Post-Op Diagnosis Lower pole renal mass. Extensive adhesions of the right lateral wall Specimens Right renal mass Drains 9 Fr Lencho drain 18 Fr Mary Anesthesia Type General Complications none Disposition Disposition: Recovery Room Indications Patient with right renal mass suspicious for malignancy. Risks and benefits discussed at length. Description of Procedure The patient was brought to the operative suite and placed under general endotracheal intubation anesthesia in the supine position. The patient was transferred to lateral position with the right flank exposed. The patient was placed into a flex'ed position and then placed into mild reverse Trendelenberg. At this point, the patient prepped and draped in the usual sterile fashion and a timeout was completed. Preoperative weight based antibiotics had been given. KIM's and SCD's were placed on the patient's lower extremities. A catheter was placed by nursing using sterile technique. With the time out completed the patient was flexed and the skin was marked. The lateral port site was anesthetized. A small incision was made into the skin and subcutaneous tissues. A Varess needle was selected and placed. The needle was easily moved and it was irrigated and aspirated without any issues or concerns for placement. Insufflation commenced. The 12 mm camera port was placed however upon entering the cavity, severe adhesions were noted and made inspection of the abdomen extremely difficult. The abdominal cavity was further insufflated. Once insufflated, the lateral edge of the rectus sheath was marked and anesthetized. The skin was incised and a camera port was placed. The cavity was insufflated to 15 mmHG. The laparoscopic camera was placed and the abdominal cavity inspected. Severe adhesions were noted all along the right lateral peritoneum coming from both colon and bowel. No concerning features were noted. At this point, the skin was marked for port placement and 8mm working ports were placed. The skin was anesthetized down to fascia and an approx 1cm incision was made to place the 2 x 8mm ports. Through these ports the adhesions were freed utilizing laparoscopic scissors as well as blunt dissection. Care was taken to avoid the bowel. No cautery was utilized during this portion. A approximately 35 minutes time frame was necessary to free and incise and lyse all of the severe adhesions. The lateral camera port was then fully visualized however due to its positioning it was decided to utilize a more medial camera placement in the laparoscopic camera remained in this medial port. Minor bleeding was noted on the abdominal wall and this was cauterized with cautery. Two 10 mm operations manager assistant ports were also placed in similar fashion under direct visualization. The robot was positioned and docked. The camera was placed and all trocars were positioned under direct visualization. Cristal Richards was integral in port placement, camera utilization, and docking procedure. She also assisted during the extensive lysis of adhesions. She remained in sterile attire and then proceeded to assist the remainder of the case. The colon was mobilized medially to expose the retroperitoneum and the area assessed. Adhesions were freed to allow mobilization. A small amount of further adhesions were noted from the colon and were freed. These were dissected with blunt technique. Cautery was used to assist dissection and control bleeding. The retroperitoneal fat was assessed. Starting distally the retroperitoneum was dissected and care was taken to dissect down near the IVC. The gonadal vein and ureter were identified. This was then followed superiorly. Dissection stayed toward the midline along the IVC and the ureter and gonadal vein were followed up towards the renal hilum. The dissection was followed to the renal pelvis. The Renal Vein was identified and exposed. Dissection was taken further superior. The Renal Artery and Vein were then cleaned and exposed. Patient was found to have 2 renal arteries and 2 renal veins. Clamp placement was assessed and good access was achieved. The perirenal fat anterior to the kidney was then dissected. The mass and surrounding tissues were exposed. The kidney was then further mobilized. The ultrasound probe was placed and the mass further examined. The edges were marked. The Vessels were assessed a final time. Four bulldog clamps were placed, one on each artery and 1 bulldog clamp on each of the veins. The kidney appropriately blanched. The previously marked margins were used to start the incision into the kidney. The mass was completely excised without evidence of penetrating into the capsule of the mass. The mass was quite deep and dissection was taken down towards the collecting system. The base of resection bed was assessed and small vessels were cauterized. The collecting system did appear to be opened in a small area. A barbed suture was selected and the nephrotomy closed. Care was t aken to close the collecting system opening. 3-0 Vicryl sutures were then used to close the edges of the elliptical opening. Three Vicryl sutures were used to close and bolster the edges. At this point, the bulldog clamps were removed. Warm ischemia time, in total, was less than 20 minutes. The kidney was full assessed after removal of clamps. No bleeding or other major areas of concern. Weck and Hemolock clips were used to bolster and tightened to approximate the edges. Surgicel hemostatic agent sheets were placed over the vessels and on the incised edge. Hemostatic agents Tisseel and Floseal were also placed. Hemostatic agent was also placed on the vessels. No major bleeding or other issues. Gerota's tissues were replaced utilizing clips to cover the area. The excised mass was placed in an endocatch bag for removal. A Flat drain was placed through the original lateral camera port and the port was removed. It was positioned in the gutter lateral to the liver and colon. This was secured with a silk 1-0 suture. The entire dissection space was inspected one final time. No bleeding or injuries or areas of concern were noted. No tumor or other concerning features were noted. At this point, the robot was undocked and moved away from the patient. The port sites were all assessed laparoscopically. The endoscopic bag was moved into the perimedian port. The 10mm port sites were closed with Vicryl suture. The other ports were assessed and no issues observed. The perimedian incision was opened further exposing fascia which was then opened in order to removed the mass within the bag. A PDS suture was used to close fascia. The skin at each site was closed with a skin stapling device. The area was cleaned and bandages placed on each incision. The patient was cleaned and bandaged. He was moved back into the supine position The patient was cleaned, aroused from anesthesia, and transferred to the pacu in stable condition having tolerated the procedure well with no complications. I was present and participated in all aspects of the procedure. EFRAÍN Guy was critical in the portions as mentioned above. I attest to the content of the Intraoperative Record and any orders documented therein. Any exceptions are noted below.
== END 2019-11-07 15:34 | disposition home or self-care (01) ==
LOC: ASU 06:42 → INTOOBSV 13:17 → 3N 13:17

== ENCOUNTER 2020-10-27 11:03 | Inpatient (IN) ==
[2020-10-27] MEDS ORDERED: methylPREDNISolone 125 MG/2 ML VIAL IV STA (11:27)
[2020-10-27] MEDS ORDERED: LORazepam 0.5 MG/1 ML VIAL IV STA (11:27)
[2020-10-27] MEDS ORDERED: HYDROcodone/HOMATROPINE SYRUP 5MG/1.5MG 5ML UDP PO STA (11:27)
[2020-10-27] MEDS ORDERED: SODIUM CHLORIDE 0.9% 1000ML 1,000 ML IV ONE (11:27)
[2020-10-27] MEDS ORDERED: ALBUT/IPRATROP 3MG/0.5MG NEB 3 ML VIAL NEB STA ×2 (11:27→12:36)
[2020-10-27 11:36] LABS: Eosinophils # (auto) 0.01 K/uL (0-0.5); Eosinophils % (auto) 0.1 %; Hematocrit (blood only) 38.9 % (37-47); Hemoglobin 12.7 g/dL (12.0-16.0); Immature Granulocytes # (auto) 0.02 K/uL (0.00-0.02); Immature Granulocytes % (auto) 0.2 %; Lymphocytes # (auto) 1.36 K/uL (1.2-3.4); Lymphocytes % (auto) 15.8 %; Mean Corpuscular Hemoglobin 29.1 pg (25-34); Mean Corpuscular Hgb Conc 32.6 g/dL (32-36); Mean Platelet Volume 8.4 fL (7.4-10.4); Monocytes # (auto) 0.16 K/uL (0.11-0.59); Monocytes % (auto) 1.9 %; Neutrophils # (auto) 7.07 K/uL (1.4-6.5); Platelet Count 284 K/uL (130-400); RDW Coefficient of Variation 14.6 % (11.5-14.5); RDW Standard Deviation 47.9 fL (36.4-46.3); Red Blood Count 4.37 M/uL (4.2-5.4); White Blood Count 8.62 K/uL (4.8-10.8)
[2020-10-27] MEDS ORDERED: OPTIRAY 320 125ml IV ONE (11:36)
[2020-10-27 11:53] LABS: BUN Creatinine Ratio 11.2 (10-20); Blood Urea Nitrogen 14 mg/dl (7-18); Carbon Dioxide 19 mmol/L (21-32); Chloride 107 mmol/L (98-107); Creatinine Clr Calc Pharmacy 41.4 ml/min; Est GFR (African American) 51.2 ml/min; Est GFR (Non-African American) 44.1 ml/min; Glucose 137 mg/dl (70-99); Potassium 3.7 mmol/L (3.5-5.1); Sodium 138 mmol/L (136-145)
[2020-10-27 11:55] LABS: Base Excess VBG -4.5 mEq/L; pH VBG 7.38 (7.36-7.41)
[2020-10-27 11:58] LABS: Troponin I < 0.015 ng/ml (0-0.045)
--- NOTE | 2020-10-27 12:27 | CT Scan Report ---
CT ANGIOGRAM OF THE CHEST CLINICAL HISTORY: Dyspnea. COMPARISON STUDY: Chest x-ray dated 03/09/2020. Chest CT dated 10/05/2019. TECHNIQUE: Following the IV administration of 118 cc of Optiray 320, CT angiogram of the chest was pe rformed from the upper abdomen to the thoracic inlet utilizing the pulmonary embolus protocol. Images are reviewed in the axial, sagittal, and coronal planes. 3-D MIPS images are created and assessed. I V contrast was administered without complication. A dose lowering technique was utilized adhering to the principles of ALARA. CT DOSE: 752.37 mGy.cm FINDINGS: Thyroid: Imaged portions of the thyroid gland are normal in size and attenuation. A 2.9 x 2.2 cm nodu le is again seen inferior to the left lobe. Thoracic aorta: The thoracic aorta is normal in caliber and demonstrates standard 3-vessel arch anato my. No dissection is seen. Pulmonary vasculature: The pulmonary trunk is dilated measuring 3.6 cm in diameter. This suggests pul monary artery hypertension. There are no filling defects identified in main, lobar, or segmental pulm onary branches to suggest pulmonary embolus. Heart: The heart is normal in size and without pericardial effusion. Lungs and pleural spaces: Evaluation of the lung parenchyma is modestly degraded by motion artifact. There is no airspace consolidation or pleural effusion. The trachea and central airways are clear. De pendent atelectasis is noted. Mediastinum: There is no mediastinal lymphadenopathy. Margarette: Clear. Axillae: There is no axillary lymphadenopathy. There is a moderate hiatal hernia. The liver is steatotic. Cholecystectomy clips are noted Partially visualized upper abdominal viscera is within normal limits. Skeletal structures: The skeletal structures are osteopenic. Degenerative change is noted in the shou lders and thoracic spine. No lytic or blastic bony lesions are seen. IMPRESSION: 1. There is no evidence of pulmonary embolus in the main, lobar, or segmental pulmonary arteries. 2. There is no airspace consolidation or pleural effusion. 3. Hepatic steatosis. 4. A 2.9 cm nodule is again seen below the left lobe of the thyroid. If not already performed, noneme rgent/outpatient ultrasound is again recommended for further evaluation. 5. Hiatal hernia. ACT 112: Negative or not required by law. Electronically signed by: Nino Pimentel M.D. 10/27/2020 12:26 PM
--- NOTE | 2020-10-27 13:04 | Emergency Department Note ---
History of Present Illness General Chief Complaint: Illness Stated Complaint: COUGH/THROWING UP/BRONCHITIS Time Seen by Provider: 10/27/20 11:10 History of Present Illness Provider Complaint: shortness of breath, cough and "asthma attack" Onset (ago): week(s) (3) Severity: moderate Consistency/Duration: + progressively worsening Maximum Pain Intensity: 7 Relieved By: + nothing Exacerbated By: + coughing Context: no occurred during exertion, no choking/aspiration, no recent travel, no trauma/injury or no CO exposure Known history of: asthma Associated symptoms: + chest pain, + pain with inspiration, + cough, + wheezing and + sputum production; no fever, no orthopnea, no lower extremity pain, no polyuria, no polydipsia, no paresthesias, no palpitations, no carpopedal spasm, no hemoptysis, no diaphoresis, no nausea/vomiting, no syncope, no abdominal pain, no rash, no sense of impending doom or no chest congestion Related Data Home oxygen amount: none Home Medications Medication Instructions Recorded Confirmed Type azelastine 205.5 mcg (0.15 %) 1 sprays INTNAS BID 10/07/19 10/27/20 History nasal spray fluoxetine 10 mg capsule (Prozac) 10 mg PO QAM 10/07/19 10/27/20 History fluticasone propionate 50 1 sprays INTNAS BID 10/07/19 10/27/20 History mcg/actuation nasal spray,suspension (Flonase Allergy Relief) montelukast 10 mg tablet 10 mg PO QAM 10/07/19 10/27/20 History (Singulair) calcium carbonate 500 mg calcium 1,000 mg PO QPM tab 10/12/19 10/27/20 History (1,250 mg) chewable tablet omeprazole 20 mg capsule,delayed 20 mg PO QAM 10/12/19 10/27/20 History release sodium chloride 0.65 % nasal spray 2 sprays INTNAS QID PRN 10/12/19 10/27/20 History aerosol (Saline Nasal) albuterol sulfate 90 mcg/actuation 1 puff INHALATION QID PRN 10/19/19 10/27/20 History aerosol inhaler fluticasone propionate 230 2 puff INHALATION BID 10/19/19 10/27/20 History mcg-salmeterol 21 mcg/actuation HFA inhaler (Advair HFA) lisinopril 20 mg tablet 20 mg PO QAM 10/19/19 10/27/20 History acetaminophen 650 mg 1,300 mg PO Q12H PRN 10/27/20 10/27/20 History tablet,extended release amoxicillin 875 mg-potassium 1 tab PO BID 10/27/20 10/27/20 History clavulanate 125 mg tablet docusate sodium 50 mg capsule 50 mg PO QAM 10/27/20 10/27/20 History (Colace Clear) methylprednisolone 4 mg tablets in 4 mg PO DIRECTED 10/27/20 10/27/20 History a dose pack polyethylene glycol 3350 17 17 g PO DAILY PRN 10/27/20 10/27/20 History gram/dose oral powder (Miralax) Allergies Allergy/AdvReac Type Severity Reaction Status Date / Time No Known Allergies Allergy Verified 10/27/20 12:38 Past Med/Surg History Medical History (Updated 10/27/20 @ 13:09 by Ed Panda) Anxiety Asthma uses PRN INH at least once per day, Advair BID Benign thyroid cyst Constipation Depression Fall recent fall 10/01/2019 - tripped over dog -- left rib fractures GERD (gastroesophageal reflux disease) Hiatal hernia HTN (hypertension) Kidney mass Osteoarthritis Sleep apnea CPAP, not using at all for the past year due to sinus issues Tachycardia Recent workup by PCP included stress test and Zio patch. No sustained arrhythmias, few runs of SVT. No ischemia on stress echo. Surgical History H/O section History of appendectomy History of cholecystectomy History of colonoscopy History of esophagogastroduodenoscopy (EGD) History of hysterectomy History of tooth extraction Nausea and vomiting after administration of anesthetic agent Family History Mother Nephrolithiasis Hypertension Other No family history of adverse response to anesthesia Social History Smoking Status: Never smoker Second Hand Exposure: Yes (as a child, ex was a smoker); Hx Alcohol Use: Yes Alcohol type: beer and wine Hx Substance Use: No Preferred Language: Amharic Communication Ability: Effective Bronzer Required: No Beliefs That Will Affect Care: None marital status: Current Living Situation: Family current occupational status: retired Feels Safe at Home: Yes Assistive Devices: Cane Review of Systems A total of 10 systems reviewed and were otherwise negative Physical Exam Vital Signs: Vital Signs - 24 hr 10/27/20 11:05 10/27/20 11:47 10/27/20 12:28 Temperature 36.8 C Temperature Source Temporal Artery Sc an Pulse Rate 136 H Pulse Rate [Left] 132 H 112 H Pulse Rhythm [Left ] Regular Pulse Strength [Le ft] Normal Respiratory Rate 28 H 26 H 22 Respiratory Effort / Characteristics Non-Labored Non-Labored Sponta neous Non-Labored Sponta neous Respiratory Depth Normal Normal Respiratory Patter n Regular Blood Pressure 138/67 Blood Pressure [Ri ght Arm] 175/92 H Blood Pressure Ning n 90 Blood Pressure Ning n [Right Arm] 119 Blood Pressure Pos ition [Right Arm] Sitting Pulse Oximetry 96 94 93 Oxygen Delivery Me thod Room Air Room Air Room Air Sepsis Recent Feve r Within 48 Hours No Sepsis New/Unexpla ined Change in Men gaurang Status No Sepsis Action Take n by Nursing No Action Required 10/27/20 12:46 Temperature Temperature Source Pulse Rate Pulse Rate [Left] 110 H Pulse Rhythm [Left ] Pulse Strength [Le ft] Respiratory Rate 22 Respiratory Effort / Characteristics Non-Labored Sponta neous Respiratory Depth Respiratory Patter n Blood Pressure Blood Pressure [Ri ght Arm] Blood Pressure Ning n Blood Pressure Ning n [Right Arm] Blood Pressure Pos ition [Right Arm] Pulse Oximetry 94 Oxygen Delivery Me thod Room Air Sepsis Recent Feve r Within 48 Hours Sepsis New/Unexpla ined Change in Men gaurang Status Sepsis Action Take n by Nursing Physical Exam: Physical Exam GENERAL: Patient appears anxious and distressed. HENT: Exam performed. -Head: Normocephalic and atraumatic. -Right Ear: External ear normal. No mastoid tenderness. -Left Ear: External ear normal. No mastoid tenderness. -Mouth/Throat: The oropharynx is clear and moist. No trismus in the jaw. No dental abscesses or uvula swelling. No oropharyngeal exudate or tonsillar abscesses. EYES: Conjunctivae and EOM are normal. Pupils are equal, round, and reactive to light. Right eye exhibits no discharge. Left eye exhibits no discharge. No scleral icterus. NECK: Normal range of motion. Neck supple. No JVD present. No spinous process tenderness present. No carotid bruit present. No rigidity. No tracheal deviation and normal range of motion present. No Brudzinski's sign and no Kernig's sign noted. CV: Tachycardic rate, regular rhythm, normal heart sounds and intact distal pulses. There is no peripheral edema. Palpable radial pulses bue. PULM/CHEST: Tachypneic. Slight expiratory wheezes. ABD: The abdomen is soft. Bowel sounds are normal. She has no distension. No mass is present. There is no tenderness. There is no rebound, no guarding, no Gabriel's sign and no tenderness at McBurney's point. Rovsig negative MUSC/SKEL: Normal range of motion. There is no peripheral edema, tenderness or deformity. LYMPH: No cervical adenopathy. NEURO: She is alert and oriented to person, place, and time. She has normal strength. No cranial nerve deficit or sensory deficit. Coordination and gait normal. GCS eye subscore is 4. GCS verbal subscore is 5. GCS motor subscore is 6. Cerebellar tests wnl. SKIN: Skin is warm and dry. She is not diaphoretic. PSYCH: She has a normal mood and affect. Behavior is normal. Judgment and thought content normal. Course Course 1110: The patient was evaluated in room B8. A complete history and physical exam was performed Cardiac monitoring: An order was placed for continuous cardiac monitoring. The monitor shows a rate of 120 with sinus tachcardia rhythm 1306: Status post 1 DuoNeb treatment, Solu-Medrol 125 mg IV push, Ativan 0.5 mg, and Hycodan 1 teaspoon the patient reports she feels much better. She states her cough is better. On recitation of the lungs patient's lungs have opened up and she is having more wheezing. We will give the patient another DuoNeb treatment. The patient states that the DuoNeb treatment did make her feel better like she could breathe better. Patient states she does not have a nebulizer at home. Patient's labs and imaging are within normal limits. No PE. Patient was offered inpatient admission for asthma attack versus discharge with follow-up PCP and patient elected to be admitted to the hospital. Discussed the case with Betsy Bustamante [facility] hospitalist who stated to admit to Dr. Sena. Administered Medications Discontinued Medications Albuterol (Albut/Ipratrop 3mg/0.5mg Neb 3 Ml Vial) 3 ml NEB NOW STA Stop: 10/27/20 11:28 Last Admin: 10/27/20 11:45 Dose: 3 ml Documented by: [id number] Albuterol (Albut/Ipratrop 3mg/0.5mg Neb 3 Ml Vial) 3 ml NEB NOW STA Stop: 10/27/20 12:37 Last Admin: 10/27/20 12:45 Dose: 3 ml Documented by: [id number] Hydrocodone Bit/Homatropine Methylb (Hydrocodone/Homatropine Syrup 5mg/1.5mg 5ml Udp) 5 ml PO NOW STA Stop: 10/27/20 11:28 Last Admin: 10/27/20 11:42 Dose: 5 ml Documented by: [id number] Lorazepam (Ativan) 0.5 mg in 1 mls @ 1 mls/min IV NOW STA Stop: 10/27/20 11:28 Last Admin: 10/27/20 11:55 Dose: 1 mls/min Documented by: [id number] Sodium Chloride (Nss 1000ml) 1,000 mls @ 999 mls/hr IV .Q1H1M ONE Stop: 10/27/20 12:27 Last Admin: 10/27/20 11:55 Dose: 999 mls/hr Documented by: [id number] Ioversol (Optiray 320 125ml) 118 ml IV ONCE ONE Stop: 10/27/20 11:37 Last Admin: 10/27/20 11:36 Dose: 118 ml Documented by: [id number] Methylprednisolone (Methylprednisolone 125 Mg/2 Ml Vial) 125 mg IV NOW STA Stop: 10/27/20 11:28 Last Admin: 10/27/20 11:42 Dose: 125 mg Documented by: [id number] Medical Decision Making Laboratory Data Result diagrams: 10/27/20 11:20 10/27/20 11:20 Lab Results 10/27/20 10/27/20 10/27/20 Range/Units 11:20 11:20 11:22 WBC 8.62 (4.8-10.8) K/uL RBC 4.37 (4.2-5.4) M/uL Hgb 12.7 (12.0-16.0) g/dL Hct 38.9 (37-47) % MCV 89.0 (80-100) fL MCH 29.1 (25-34) pg MCHC 32.6 (32-36) g/dL RDW Std Deviation 47.9 H (36.4-46.3) fL RDW Coeff of Verna 14.6 H (11.5-14.5) % Plt Count 284 (130-400) K/uL MPV 8.4 (7.4-10.4) fL Immature Gran % (Auto) 0.2 % Neut % (Auto) 82.0 % Lymph % (Auto) 15.8 % Cedar % (Auto) 1.9 % Eos % (Auto) 0.1 % Baso % (Auto) 0.0 % Neut # (Auto) 7.07 H (1.4-6.5) K/uL Lymph # (Auto) 1.36 (1.2-3.4) K/uL Cedar # (Auto) 0.16 (0.11-0.59) K/uL Eos # (Auto) 0.01 (0-0.5) K/uL Baso # (Auto) 0.00 (0-0.2) K/uL Immature Gran # (Auto) 0.02 (0.00-0.02) K/uL VBG pH (7.36-7.41) VBG pCO2 (38-50) mmHg VBG pO2 mmHg VBG HCO3 mmol/L VBG O2 Saturation % VBG Base Excess mEq/L Barometric Pressure mm/Hg Sodium 138 (136-145) mmol/L Potassium 3.7 (3.5-5.1) mmol/L Chloride 107 (98-107) mmol/L Carbon Dioxide 19 L (21-32) mmol/L Anion Gap 12.0 H (3-11) BUN 14 (7-18) mg/dl Creatinine 1.28 H (0.6-1.2) mg/dl Est Cr Clr Drug Dosing 41.4 ml/min Est GFR ( Amer) 51.2 ml/min Est GFR (Non-Af Amer) 44.1 ml/min BUN/Creatinine Ratio 11.2 (10-20) Glucose 137 H (70-99) mg/dl Calcium 9.0 (8.5-10.1) mg/dl Troponin I < 0.015 (0-0.045) ng/ml COVID-19 Eval Order Covid19 at [facility] SARS-CoV-2 (PCR) (Negative) 10/27/20 10/27/20 Range/Units 11:22 11:43 WBC (4.8-10.8) K/uL RBC (4.2-5.4) M/uL Hgb (12.0-16.0) g/dL Hct (37-47) % MCV (80-100) fL MCH (25-34) pg MCHC (32-36) g/dL RDW Std Deviation (36.4-46.3) fL RDW Coeff of Verna (11.5-14.5) % Plt Count (130-400) K/uL MPV (7.4-10.4) fL Immature Gran % (Auto) % Neut % (Auto) % Lymph % (Auto) % Cedar % (Auto) % Eos % (Auto) % Baso % (Auto) % Neut # (Auto) (1.4-6.5) K/uL Lymph # (Auto) (1.2-3.4) K/uL Cedar # (Auto) (0.11-0.59) K/uL Eos # (Auto) (0-0.5) K/uL Baso # (Auto) (0-0.2) K/uL Immature Gran # (Auto) (0.00-0.02) K/uL VBG pH 7.38 (7.36-7.41) VBG pCO2 34 L (38-50) mmHg VBG pO2 39 mmHg VBG HCO3 20 mmol/L VBG O2 Saturation 72.0 % VBG Base Excess -4.5 mEq/L Barometric Pressure 731.5 mm/Hg Sodium (136-145) mmol/L Potassium (3.5-5.1) mmol/L Chloride (98-107) mmol/L Carbon Dioxide (21-32) mmol/L Anion Gap (3-11) BUN (7-18) mg/dl Creatinine (0.6-1.2) mg/dl Est Cr Clr Drug Dosing ml/min Est GFR ( Amer) ml/min Est GFR (Non-Af Amer) ml/min BUN/Creatinine Ratio (10-20) Glucose (70-99) mg/dl Calcium (8.5-10.1) mg/dl Troponin I (0-0.045) ng/ml COVID-19 Eval Order SARS-CoV-2 (PCR) NEGATIVE (Negative) Imaging Data Radiologist's Impression: Chest CTA 10/27/20 11:28 CT ANGIOGRAM OF THE CHEST CLINICAL HISTORY: Dyspnea. COMPARISON STUDY: Chest x-ray dated 03/09/2020. Chest CT dated 10/05/2019. TECHNIQUE: Following the IV administration of 118 cc of Optiray 320, CT angiog laurent of the chest was performed from the upper abdomen to the thoracic inlet utilizing the pulmonary embolus protocol. Images are reviewed in the axial, sagittal, and coronal planes. 3-D MIPS images are created and assessed. IV contrast was administered without complication. A dose lowering technique was utilized adhering to the principles of ALARA. CT DOSE: 752.37 mGy.cm FINDINGS: Thyroid: Imaged portions of the thyroid gland are normal in size and attenuation. A 2.9 x 2.2 cm nodule is again seen inferior to the left lobe. Thoracic aorta: The thoracic aorta is normal in caliber and demonstrates standard 3-vessel arch anatomy. No dissection is seen. Pulmonary vasculature: The pulmonary trunk is dilated measuring 3.6 cm in diameter. This suggests pulmonary artery hypertension. There are no filling defects identified in main, lobar, or segmental pulmonary branches to suggest pulmonary embolus. Heart: The heart is normal in size and without pericardial effusion. Lungs and pleural spaces: Evaluation of the lung parenchyma is modestly degraded by motion artifact. There is no airspace consolidation or pleural effusion. The trachea and central airways are clear. Dependent atelectasis is noted. Mediastinum: There is no mediastinal lymphadenopathy. Margarette: Clear. Axillae: There is no axillary lymphadenopathy. There is a moderate hiatal hernia. The liver is steatotic. Cholecystectomy clips are noted Partially visualized upper abdominal viscera is within normal limits. Skeletal structures: The skeletal structures are osteopenic. Degenerative change is noted in the shoulders and thoracic spine. No lytic or blastic bony lesions are seen. IMPRESSION: 1. There is no evidence of pulmonary embolus in the main, lobar, or segmental pulmonary arteries. 2. There is no airspace consolidation or pleural effusion. 3. Hepatic steatosis. 4. A 2.9 cm nodule is again seen below the left lobe of the thyroid. If not already performed, nonemergent/outpatient ultrasound is again recommended for further evaluation. 5. Hiatal hernia. ACT 112: Negative or not required by law. Electronically signed by: Nino Pimentel M.D. 10/27/2020 12:26 PM ECG Data Interpretation: Sinus tachycardia with a rate of 135. SC and QTc intervals within normal limits. QRS 72. No ST elevation or ST depression. There is significant baseline wander due to the patient's tachypnea and movement. MDM Narrative Status post 1 DuoNeb treatment, Solu-Medrol 125 mg IV push, Ativan 0.5 mg, and Hycodan 1 teaspoon the patient reports she feels much better. She states her cough is better. On recitation of the lungs patient's lungs have opened up and she is having more wheezing. We will give the patient another DuoNeb treatment. The patient states that the DuoNeb treatment did make her feel better like she could breathe better. Patient states she does not have a nebulizer at home. Patient's labs and imaging are within normal limits. No PE. Patient was offered inpatient admission for asthma attack versus discharge with follow-up PC P and patient elected to be admitted to the hospital. Discussed the case with Betsy Bustamante [facility] hospitalist who stated to admit to Dr. Sena. Impression & Plan Asthma exacerbation Discharge Plan Visit Data Chief Complaint: Illness Stated Complaint: COUGH/THROWING UP/BRONCHITIS ED Provider: Ed Panda Discharge Problem: Asthma exacerbation Patient Disposition: Admitted As Inpatient Forms Stand Alone Forms: [facility] Prescriptions Prescriptions: No Action omeprazole 20 mg capsule,delayed release(DR/EC) 20 mg PO QAM RF: 0 sodium chloride [Saline Nasal] 0.65 % aerosol,spray 2 sprays INTNAS QID PRN (Reason: Congestion) RF: 0 calcium carbonate 500 mg calcium (1,250 mg) tablet,chewable 1,000 mg PO QPM RF: 0 fluticasone propionate [Flonase Allergy Relief] 50 mcg/actuation spray,suspension 1 sprays INTNAS BID RF: 0 azelastine 0.15 % (205.5 mcg) spray,non-aerosol 1 sprays INTNAS BID RF: 0 fluoxetine [Prozac] 10 mg capsule 10 mg PO QAM RF: 0 montelukast [Singulair] 10 mg tablet 10 mg PO QAM RF: 0 albuterol sulfate 90 mcg/actuation Hfa Aerosol Inhaler 1 puff INHALATION QID PRN (Reason: sob) RF: 0 Advair HFA 230-21 mcg/actuation Hfa Aerosol Inhaler 2 puff INHALATION BID RF: 0 lisinopril 20 mg Tablet 20 mg PO QAM RF: 0 acetaminophen [Tylenol Arthritis] 650 mg Tablet Extended Release 1,300 mg PO Q12H PRN (Reason: Pain) RF: 0 methylprednisolone 4 mg tablets,dose pack 4 mg PO DIRECTED RF: 0 amoxicillin-pot clavulanate 875-125 mg tablet 1 tab PO BID RF: 0 Colace Clear 50 mg capsule 50 mg PO QAM RF: 0 polyethylene glycol 3350 [Miralax] 17 gram/dose Powder 17 g PO DAILY PRN (Reason: Constipation) RF: 0 Referrals Referrals: Efra Romero MD [Primary Care Provider] - Discharge Problem: Asthma exacerbation Qualifiers: Asthma severity: moderate Asthma persistence: persistent Qualified Code(s): J45.41 - Moderate persistent asthma with (acute) exacerbation
--- NOTE | 2020-10-27 14:06 | History & Physical Report ---
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 Asthma Exacerbation CXR and CTA negative for PE/PNA. Procalcitonin negative, likely not infectious. Completed course of azithromycin earlier this month. She is Vaccinated against covid-19. admit to PCU albuterol neb QID, and q2hr prn pulmonary toilet - flutter valve, incentive spirometry, nebs IV solumedrol 40mg IV TID IV LR 80cc/hr x 2 L hycodan q8hr prn, tessalon perle and muccinex scheduled O2 as needed no signs of infectious etiology, likely allergic or viral Sinus Tachycardia likely 2/2 to elevated resp rate, vs med side effects from methylprednisolone monitor closely Hypertension continue lisinopril, BP in ED 175/92 after prednisone and albuterol recheck on floor, monitor can give prn labetalol q6h PABLO baseline cr 0.8 cr 1.28 avoid nephrotoxic agents likely 2/2 to poor intake gentle IVF, repeat labs CAILIN on CPAP Cpap at HS if can tolerate Thrush nystatin oral QID x 7 days DVT ppx: Lovenox Dispo: PCU FULL CODE PCP: Heather Pt was seen and examined in collaboration with Dr. Sean, please see addendum History of Present Illness Chief Complaint: Upper and lower respiratory symptoms x3 to 4 weeks. 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 Of significance patient received her second dose of the Covid vaccine on 09/04. Approximately 3 to 4 weeks ago she developed this upper and lower respiratory symptoms after being exposed to her brother who also had similar symptoms. She complains of sinus congestion, itchy watery eyes, rhinorrhea, postnasal drip, cough with thick productive white and euceda sputum, occasional red-tinged sputum, nausea, chest and abdominal pain with coughing, poor appetite, extreme fatigue from lack of sleep and coughing and, "I am wearing out." She does take an Advair inhaler twice a day and 2 weeks ago this was recently increased. She also has been taking her albuterol every 4 hours. She did recently get a new spacer which feels this has helped but feels she is unable to manage her symptoms at home. She has been seen by outpatient providers twice and has completed a full course of azithromycin as well as 2 full courses of prednisone. She was seen and evaluated by urgent care yesterday who prescribed her Augmentin and additional prednisone taper. She also complains of being constipated but had a very large bowel movement yesterday. She denies any fevers but complains of being chilled and clammy. She also complains of being lightheaded and dizzy and admits to having a loop recorder placed and following cardiology's because of this. She denies any inez chest pain, shortness of karina ath at rest, orthopnea, PND, edema, abdominal pain, diarrhea, melena or hematochezia. She does have urinary incontinence with coughing and also complains of, "thrush in her mouth." Lastly she admits to her oxygen saturations being 8889% while at home. Her O2 sats would increase whenever she would cough a significant amount of phlegm up. In ED patient did remain hemodynamically stable but she was significantly tachycardic on arrival. Her CBC was generally unremarkable. Her VBG pH was 7.38 and PCO2 was 34. Her CMP was consistent with mild elevation of creatinine of 1.28 and glucose of 137. Her procalcitonin was WNL. Her Covid was negative. When seen and evaluated in urgent care yesterday she did have a lab panel including a D-dimer. Her D-dimer was mildly elevated. Her chest CTA was negative for PE or pneumonia. In ED she received albuterol, IV methylprednisolone, Hycodan, IV fluid and IV Ativan. Allergies Allergy/AdvReac Type Severity Reaction Status Date / Time No Known Allergies Allergy Verified 10/27/20 12:38 Home Medications Medication Instructions Recorded Confirmed Type azelastine 205.5 mcg (0.15 %) 1 sprays INTNAS BID 10/07/19 10/27/20 History nasal spray fluticasone propionate 50 1 sprays INTNAS BID 10/07/19 10/27/20 History mcg/actuation nasal spray,suspension (Flonase Allergy Relief) montelukast 10 mg tablet 10 mg PO QAM 10/07/19 10/27/20 History (Singulair) calcium carbonate 500 mg calcium 1,000 mg PO QPM tab 10/12/19 10/27/20 History (1,250 mg) chewable tablet omeprazole 20 mg capsule,delayed 20 mg PO QAM 10/12/19 10/27/20 History release sodium chloride 0.65 % nasal spray 2 sprays INTNAS QID PRN 10/12/19 10/27/20 History aerosol (Saline Nasal) albuterol sulfate 90 mcg/actuation 1 puff INHALATION QID PRN 10/19/19 10/27/20 History aerosol inhaler fluticasone propionate 230 2 puff INHALATION BID 10/19/19 10/27/20 History mcg-salmeterol 21 mcg/actuation HFA inhaler (Advair HFA) lisinopril 20 mg tablet 20 mg PO QAM 10/19/19 10/27/20 History acetaminophen 650 mg 1,300 mg PO Q12H PRN 10/27/20 10/27/20 History tablet,extended release amoxicillin 875 mg-potassium 1 tab PO BID 10/27/20 10/27/20 History clavulanate 125 mg tablet docusate sodium 50 mg capsule 50 mg PO QAM 10/27/20 10/27/20 History (Colace Clear) fluoxetine 40 mg capsule 40 mg PO DAILY 10/27/20 10/27/20 History methylprednisolone 4 mg tablets in 4 mg PO DIRECTED 10/27/20 10/27/20 History a dose pack polyethylene glycol 3350 17 17 g PO DAILY PRN 10/27/20 10/27/20 History gram/dose oral powder (Miralax) Past Med/Surg History Medical History (Updated 10/27/20 @ 14:12 by Betsy Tesfaye PA-C) Anxiety Asthma uses PRN INH at least once per day, Advair BID Benign thyroid cyst Clear cell carcinoma of right kidney s/p resection Constipation Depression Fall recent fall 10/01/2019 - tripped over dog -- left rib fractures GERD (gastroesophageal reflux disease) Hiatal hernia HTN (hypertension) Kidney mass Osteoarthritis Sleep apnea CPAP, not using at all for the past year due to sinus issues Tachycardia Recent workup by PCP included stress test and Zio patch. No sustained arrhythmias, few runs of SVT. No ischemia on stress echo. Surgical History (Updated 10/27/20 @ 14:08 by Betsy Tesfaye PA-C) H/O section H/O partial nephrectomy 10/2019 History of appendectomy History of cholecystectomy History of colonoscopy History of esophagogastroduodenoscopy (EGD) History of hysterectomy History of tooth extraction Nausea and vomiting after administration of anesthetic agent Family History Mother Nephrolithiasis Hypertension Other No family history of adverse response to anesthesia Social History Smoking Status: Never smoker Second Hand Exposure: Yes (as a child, ex was a smoker); Hx Alcohol Use: Yes Alcohol type: beer and wine Hx Substance Use: No Preferred Language: Greenlandic Communication Ability: Effective Scalloper Required: No Beliefs That Will Affect Care: None marital status: Current Living Situation: Family Current Living Situation Comment: lives with kids current occupational status: retired Other Information That Helps Us Care for You: Yes (spiritual care and talking) Feels Safe at Home: Yes Safety Concerns: Feels Safe At This Time Assistive Devices: Cane, CPAP and Glasses Assistive Devices Comment: hasnt been using CPAP since was recalled Review of Systems Review of Systems: All systems reviewed & are unremarkable except as noted in HPI & below Physical Exam Physical Exam: Constitutional: WD/WN, obese, vitals as above, NAD, sitting up in bed, pleasant, conversing easily, +harsh cough noted Head: Normocephalic, Atraumatic Eyes: PERRL, conjunctivae normal, anicteric sclerae ENMT: external ear and nose normal, oropharynx +thrush Neck: trachea midline, no thyromegaly normal visual inspection Respiratory: normal respiratory effort, decreased aeration but clear b/l, no wheeze, rales, rhonchi. Normal insp/exp effort, no accessory muscle use Cardiovascular: tachycardic rate, reg rhythm, no murmur, no edema Vessels: no JVD or carotid bruit Chest: normal inspection of chest Abdomen: normal bowel sounds, soft, nontender, no hepatosplenomegaly Musculoskeletal: no cyanosis or clubbing, extremities motor strength 5/5 Skin: no rashes, warm and dry normal turgor Neurologic: PERRL, EOMI, accommodation nl, no face palsy, no dysarthria CN's II-XI intact bilaterally and moves all extremities Psychiatric: A+Ox3, euthymic affect Lymphatic: no cervical or axillary lymphadenopathy : deferred Results & Data Results & Data ([facility]) Vital Signs (Past 12 Hours) Vital Signs Temp Pulse Pulse Resp BP BP Pulse Ox 10/27/20 12:46 110 H 22 94 10/27/20 12:28 112 H 22 175/92 H 93 10/27/20 11:47 132 H 26 H 94 10/27/20 11:05 36.8 C 136 H 28 H 138/67 96 Diagnostic Findings Chest CTA 10/27/20 11:28 CT ANGIOGRAM OF THE CHEST CLINICAL HISTORY: Dyspnea. COMPARISON STUDY: Chest x-ray dated 03/09/2020. Chest CT dated 10/05/2019. TECHNIQUE: Following the IV administration of 118 cc of Optiray 320, CT angiogram of the chest was performed from the upper abdomen to the thoracic inlet utilizing the pulmonary embolus protocol. Images are reviewed in the axial, sagittal, and coronal planes. 3-D MIPS images are created and assessed. IV contrast was administered without complication. A dose lowering technique was utilized adhering to the principles of ALARA. CT DOSE: 752.37 mGy.cm FINDINGS: Thyroid: Imaged portions of the thyroid gland are normal in size and attenuation. A 2.9 x 2.2 cm nodule is again seen inferior to the left lobe. Thoracic aorta: The thoracic aorta is normal in caliber and demonstrates standard 3-vessel arch anatomy. No dissection is seen. Pulmonary vasculature: The pulmonary trunk is dilated measuring 3.6 cm in diameter. This suggests pulmonary artery hypertension. There are no filling defects identified in main, lobar, or segmental pulmonary branches to suggest pulmonary embolus. Heart: The heart is normal in size and without pericardial effusion. Lungs and pleural spaces: Evaluation of the lung parenchyma is modestly degraded by motion artifact. There is no airspace consolidation or pleural effusion. The trachea and central airways are clear. Dependent atelectasis is noted. Mediastinum: There is no mediastinal lymphadenopathy. Margarette: Clear. Axillae: There is no axillary lymphadenopathy. There is a moderate hiatal hernia. The liver is steatotic. Cholecystectomy clips are noted Partially visualized upper abdominal viscera is within normal limits. Skeletal structures: The skeletal structures are osteopenic. Degenerative change is noted in the shoulders and thoracic spine. No lytic or blastic bony lesions are seen. IMPRESSION: 1. There is no evidence of pulmonary embolus in the main, lobar, or segmental pulmonary arteries. 2. There is no airspace consolidation or pleural effusion. 3. Hepatic steatosis. 4. A 2.9 cm nodule is again seen below the left lobe of the thyroid. If not already performed, nonemergent/outpatient ultrasound is again recommended for further evaluation. 5. Hiatal hernia. ACT 112: Negative or not required by law. Electronically signed by: Nino Pimentel M.D. 10/27/2020 12:26 PM Medications Administered Medication List Discontinued Medications Albuterol (Albut/Ipratrop 3mg/0.5mg Neb 3 Ml Vial) 3 ml NEB NOW STA Stop: 10/27/20 11:28 Last Admin: 10/27/20 11:45 Dose: 3 ml Documented by: [id number] Albuterol (Albut/Ipratrop 3mg/0.5mg Neb 3 Ml Vial) 3 ml NEB NOW STA Stop: 10/27/20 12:37 Last Admin: 10/27/20 12:45 Dose: 3 ml Documented by: [id number] Hydrocodone Bit/Homatropine Methylb (Hydrocodone/Homatropine Syrup 5mg/1.5mg 5ml Udp) 5 ml PO NOW STA Stop: 10/27/20 11:28 Last Admin: 10/27/20 11:42 Dose: 5 ml Documented by: [id number] Lorazepam (Ativan) 0.5 mg in 1 mls @ 1 mls/min IV NOW STA Stop: 10/27/20 11:28 Last Admin: 10/27/20 11:55 Dose: 1 mls/min Documented by: [id number] Sodium Chloride (Nss 1000ml) 1,000 mls @ 999 mls/hr IV .Q1H1M ONE Stop: 10/27/20 12:27 Last Admin: 10/27/20 11:55 Dose: 999 mls/hr Documented by: [id number] Ioversol (Optiray 320 125ml) 118 ml IV ONCE ONE Stop: 10/27/20 11:37 Last Admin: 10/27/20 11:36 Dose: 118 ml Documented by: [id number] Methylprednisolone (Methylprednisolone 125 Mg/2 Ml Vial) 125 mg IV NOW STA Stop: 10/27/20 11:28 Last Admin: 10/27/20 11:42 Dose: 125 mg Documented by: [id number] ECG Rate (beats per minute): 135 Rhythm: sinus tachycardia COVID-19 Results Results COVID-19 Adm Lab Results: RBC 4.37 M/uL (4.2-5.4) 10/27/20 WBC 8.62 K/uL (4.8-10.8) 10/27/20 Hgb 12.7 g/dL (12.0-16.0) 10/27/20 Hct 38.9 % (37-47) 10/27/20 Plt Count 284 K/uL (130-400) 10/27/20 Neutrophils (%) (Auto) 82.0 % 10/27/20 Lymphocytes (%) (Auto) 15.8 % 10/27/20 Monocytes # (Auto) 0.16 K/uL (0.11-0.59) 10/27/20 Eosinophils # (Auto) 0.01 K/uL (0-0.5) 10/27/20 Immature Granulocyte % (Auto) 0.2 % 10/27/20 Neutrophils # (Auto) 7.07 K/uL (1.4-6.5) H 10/27/20 Lymphocytes # (Auto) 1.36 K/uL (1.2-3.4) 10/27/20 Monocytes # (Auto) 0.16 K/uL (0.11-0.59) 10/27/20 Eosinophils # (Auto) 0.01 K/uL (0-0.5) 10/27/20 Basophils # (Auto) 0.00 K/uL (0-0.2) 10/27/20 Immature Granulocyte # (Auto) 0.02 K/uL (0.00-0.02) 10/27/20 Na 138 mmol/L (136-145) 10/27/20 K 3.7 mmol/L (3.5-5.1) 10/27/20 Cl 107 mmol/L (98-107) 10/27/20 CO2 19 mmol/L (21-32) L 10/27/20 Anion Gap 12.0 (3-11) H 10/27/20 BUN 14 mg/dl (7-18) 10/27/20 Creatinine 1.28 mg/dl (0.6-1.2) H 10/27/20 BUN/Creatinine Ratio 11.2 (10-20) 10/27/20 Glucose Level 137 mg/dl (70-99) H 10/27/20 Ca 9.0 mg/dl (8.5-10.1) 10/27/20 Troponin I < 0.015 ng/ml (0-0.045) 10/27/20 Procalcitonin < 0.05 ng/ml (0-0.5) 10/27/20 COVID-19 PCR NEGATIVE (Negative) 10/27/20 Code Status & VTE Plan Code Status Full Code VTE Prophylaxis Plan VTE Prophylaxis will be ordered: Yes Supervising Physician Co-Signing Physician Notes 65-year-old F w/ PMH of asthma (last exacerbation long time ago), CAILIN compliant with CPAP, HTN, GERD, obesity, history of clear cell carcinoma of right kidney s/p partial nephrectomy in 2019, nephrolithiasis, depression who presents to ED 10/27 secondary to unresolving dry cough (w/ thick scant whitish sputum), dry heaves, SOB, wheezing and belly pain (2/2 cough) since last 3 weeks despite 3 courses of oral steroid and 1 course of ATB. Admitting CTA chest negative for PE or infectious process. ABG shows hypocarbia and patient can speak in full sentences. EXAM: GENERAL: Alert and oriented x3. NAD, on RA. HEENT: No pallor, no icterus. Pupils equal, round and reactive to light. Oral mucosa moist. NECK: No JVD, no neck masses. HEART: S1 and S2 heard. Regular rate and rhythm. No murmur, no gallop. RESPIRATORY SYSTEM: Normal AP diameter. No accessory muscle use. no crackles. Wheezing resolved on my bedside exam but patient was still having coughing bouts. ABDOMEN: Soft, bowel sounds present, nontender, no distention. CENTRAL NERVOUS SYSTEM: Alert and oriented x3. No facial droop. Speech is clear. Obeys simple commands. Moves extremities. EXTREMITIES: No edema, no erythema seen. She will be managed for AE Asthma on iv steroid and nebulizations. will put her on gentle hydration for mild PABLO over CKD. Her DPOA is her boyfriend per her (Al Rosas). She is full code until she is deemed vegetative in a situation such condition arises. I have seen and examined the patient and have discussed the case with the provider above. I agree with the assessment and plan as stated. (1) Asthma exacerbation Asthma persistence: persistent Asthma severity: moderate Qualified Code(s): J45.41 - Moderate persistent asthma with (acute) exacerbation
[2020-10-27] MEDS ORDERED: MAGNESIUM HYDROXIDE SUSP 30 ML UDC PO PRN (15:26)
[2020-10-27] MEDS ORDERED: LABETALOL HCL IV 5 MG/ML 20ML IV PRN (15:26)
[2020-10-27] MEDS ORDERED: POLYETHYLENE (MIRALAX) 17 GM PACK PO PRN (15:26)
[2020-10-27] MEDS ORDERED: GLUCOSE 10 TABS/TUBE PO PRN (15:26)
[2020-10-27] MEDS ORDERED: CARBOHYDRATES FOR HYPOGLYCEMIA PO PRN (15:26)
[2020-10-27] MEDS ORDERED: GLUCOSE 40% GEL 15 GM TUBE PO PRN (15:26)
[2020-10-27] MEDS ORDERED: ALUMINUM/MAGNESIUM SUSP 30 ML UDC PO PRN (15:26)
[2020-10-27] MEDS ORDERED: GLUCAGON FOR INJ 1 MG VIAL SQ PRN (15:26)
[2020-10-27] MEDS ORDERED: DEXTROSE 50% 50 ML SYRINGE IV PRN (15:26)
[2020-10-27] MEDS: NYSTATIN SUSP 500,000 U/5 ML UDC PO SCH ×2 (16:33→20:32)
[2020-10-27] MEDS: BENZONATATE 100 MG CAPSULE PO SCH ×2 (16:33→20:32)
[2020-10-27] MEDS: LACTATED RINGER'S 1,000 ML IV SCH (16:34)
[2020-10-27] MEDS: ACETAMINOPHEN 325 MG TAB PO PRN ×2 (16:43→21:01)
[2020-10-27] MEDS: ALBUTEROL 0.5% NEB SOLN 2.5 MG/0.5 ML VIAL NEB SCH (19:39)
[2020-10-27] MEDS: CALCIUM CARBONATE 1250MG TAB PO SCH (20:32)
[2020-10-27] MEDS: guaiFENesin 600 MG TABCR PO SCH (20:32)
[2020-10-27] MEDS: FLUTICASONE PROPIONATE NA SPR 16 GM BTL SCH (20:32)
[2020-10-27] MEDS: MONTELUKAST SODIUM 10 MG TABLET PO SCH (20:32)
[2020-10-27] MEDS: ENOXAPARIN INJ 40 MG/0.4 ML SYR SQ SCH (20:33)
[2020-10-27] MEDS: FLUTICASONE/VILANTEROL 200/25MCG 14 PUFFS/INHALER INH SCH (20:33)
[2020-10-27] MEDS ORDERED: COUGH DROP (SUGAR FREE) LOZ 24 LOZ/1 BOX BUCCAL STA (21:48)
[2020-10-27] MEDS ORDERED: COUGH DROP (SUGAR FREE) LOZ 24 LOZ/1 BOX BUCCAL ONE (21:50)
[2020-10-28] MEDS: ACETAMINOPHEN 325 MG TAB PO PRN ×2 (03:39→18:13)
[2020-10-28] MEDS: oxyCODONE HCL IR 5 MG TAB (IMMEDIATE RELEASE) PO PRN ×2 (05:42→11:34)
[2020-10-28] MEDS: LACTATED RINGER'S 1,000 ML IV SCH (05:44)
[2020-10-28] MEDS: methylPREDNISolone 40 MG in SYRINGE 0 ML IV SCH ×3 (06:12→21:18)
[2020-10-28 07:24] LABS: Eosinophils # (auto) 0.02 K/uL (0-0.5); Eosinophils % (auto) 0.2 %; Hematocrit (blood only) 33.5 % (37-47); Hemoglobin 10.7 g/dL (12.0-16.0); Immature Granulocytes # (auto) 0.03 K/uL (0.00-0.02); Immature Granulocytes % (auto) 0.3 %; Lymphocytes # (auto) 1.85 K/uL (1.2-3.4); Lymphocytes % (auto) 20.3 %; Mean Corpuscular Hemoglobin 28.9 pg (25-34); Mean Corpuscular Hgb Conc 31.9 g/dL (32-36); Mean Corpuscular Volume 90.5 fL (80-100); Mean Platelet Volume 8.4 fL (7.4-10.4); Monocytes # (auto) 0.86 K/uL (0.11-0.59); Monocytes % (auto) 9.4 %; Neutrophils # (auto) 6.36 K/uL (1.4-6.5); Neutrophils % (auto) 69.8 %; Platelet Count 247 K/uL (130-400); RDW Standard Deviation 50.2 fL (36.4-46.3); White Blood Count 9.12 K/uL (4.8-10.8)
[2020-10-28] MEDS: ALBUTEROL 0.5% NEB SOLN 2.5 MG/0.5 ML VIAL NEB SCH ×2 (07:44→11:06)
[2020-10-28] MEDS: lisinopril 20 MG TAB PO SCH (08:00)
[2020-10-28] MEDS: BENZONATATE 100 MG CAPSULE PO SCH ×3 (08:00→20:43)
[2020-10-28] MEDS: FLUoxetine HCL 20 MG CAP PO SCH (08:00)
[2020-10-28] MEDS: PANTOprazole 40 MG TAB PO SCH (08:00)
[2020-10-28] MEDS: HYDROcodone/HOMATROPINE SYRUP 5MG/1.5MG 5ML UDP PO PRN ×2 (08:01→20:40)
[2020-10-28] MEDS: guaiFENesin 600 MG TABCR PO SCH ×2 (08:01→20:44)
[2020-10-28] MEDS: NYSTATIN SUSP 500,000 U/5 ML UDC PO SCH ×4 (08:01→20:43)
[2020-10-28] MEDS: FLUTICASONE PROPIONATE NA SPR 16 GM BTL SCH ×2 (08:01→20:45)
[2020-10-28 08:05] LABS: BUN Creatinine Ratio 15.6 (10-20); Calcium 8.6 mg/dl (8.5-10.1); Creatinine Clr Calc Pharmacy 83.2 ml/min; Est GFR (African American) 83.9 ml/min; Est GFR (Non-African American) 72.4 ml/min; Magnesium 2.2 mg/dl (1.8-2.4); Potassium 3.9 mmol/L (3.5-5.1)
[2020-10-28] MEDS: HYDROmorphone INJ 0.5 MG/0.5 ML SYR IV PRN ×3 (09:10→23:37)
--- NOTE | 2020-10-28 09:26 | Electrocardiogram Report ---
Test Reason : Blood Pressure : / mmHG Vent. Rate : 135 BPM Atrial Rate : 135 BPM P-R Int : 132 ms QRS Dur : 072 ms QT Int : 298 ms P-R-T Axes : 058 084 -10 degrees QTc Int : 447 ms Poor data quality, interpretation may be adversely affected Sinus tachycardia Possible Lateral infarct , age undetermined Inferior infarct , age undetermined Abnormal ECG When compared with ECG of 05-OCT-2019 17:03, Confirmed by Dagoberto Gonzalez ([id number]) on 10/28/2020 9:26:46 AM Referred By: REFERRED SELF Confirmed By:Dagoberto Gonzalez
[2020-10-28] MEDS ORDERED: IPRATROPIUM BROMIDE NEB SOLN 0.02% 2.5 ML VIAL NEB PRN (12:31)
[2020-10-28] MEDS ORDERED: ALBUTEROL 0.083% NEBU SOLN 3 ML VIAL NEB PRN (12:40)
[2020-10-28] MEDS: DOXYCYCLINE HYCLATE 100 MG CAP PO SCH ×2 (14:06→21:17)
[2020-10-28] MEDS: ALBUTEROL 0.083% NEBU SOLN 3 ML VIAL NEB SCH ×3 (15:10→23:21)
--- NOTE | 2020-10-28 18:09 | Hospitalist Progress Note ---
Date of Service October 28, 2020 Assessment & Plan (1) Asthma exacerbation: (2) Bronchitis: (3) Thrush: Plan: 65-year-old F w/ PMH of asthma (last exacerbation long time ago), CAILIN compliant with CPAP, HTN, GERD, obesity, history of clear cell carcinoma of right kidney s/p partial nephrectomy in 2019, nephrolithiasis, depression who presents to ED 10/27 secondary to unresolving dry cough (w/ thick scant whitish sputum), dry heaves, SOB, wheezing and belly pain (2/2 cough) since last 3 weeks despite 3 courses of oral steroid and 1 course of ATB. Admitting CTA chest negative for PE or infectious process. Admitting ABG shows hypocarbia and patient can speak in full sentences. She is being managed for the following: #. Acute exacerbation of asthma Not wheezing on auscultation but having bouts of dry cough frequently, patient reports some improvement in her symptoms. We will continue with IV steroid 3 times a day Increase the frequency of albuterol nebulization and add as needed ipratropium for increased symptoms. Continue to monitor clinically for respiratory stress and fatigue/altered mentation/inability to complete sentences/normal PCO2 in ABG. Do ABG as needed. In that scenario might need to transfer to ICU. #. Bronchitis Possible bronchitis, dry cough. We will treat her with 5-day course of doxycycline Continue with Leodan Blankenship #. Sinus tachycardia Likely from the ongoing distress. We will continue to monitor #. Hypertension History of hypertension, blood pressure within normal range. Continue with home medication. She states that she gets similar symptoms every summer, hence we will continue lisinopril for now as it is more likely AE asthma. If she continues to have symptoms despite IV steroid, consider stopping yoan nopril and see if it improves her symptoms. #. PABLO Mild elevation of creatinine at presentation. Improved #. CAILIN on CPAP Continue with home CPAP #. Oral thrush Continue with nystatin swish and swallow. Avoid eating/drinking anything for 30 minutes to prolong the medication contact with oral mucosa. Upon discharge, patient advised to swish and spit plain water every time after the use of steroid inhalers. IVF DC'd as pt is eating ok. Her DPOA is her boyfriend per her (Al Ralph). She is full code until she is deemed vegetative in a situation such condition arises. Admission and Anticipated Discharge Date Admission Date: October 27, 2020 Subjective Patient was sitting up in bed, coughing frequently x dry, on RA. Patient denies Headache, Dizziness, Fever, Chills, Sore throat, Cough, Chest pain, palpitations, SOB, pain/burning while passing urine. Last Bowel movement [few days ago], pt just started eating ok after iv steroid abated her cough little bit. States she is better than yesterday. Overnight at around 3 AM, she had bouts of continuous cough associated with whitish mucus production which was disturbing per her. Physical Exam Physical Exam: GENERAL: Alert and oriented x3. NAD, on RA. Frequently coughing at bedside exam HEENT: No pallor, no icterus. Pupils equal, round and reactive to light. Oral mucosa moist. NECK: No JVD, no neck masses. HEART: S1 and S2 heard. Regular rate and rhythm. No murmur, no gallop. RESPIRATORY SYSTEM: Normal AP diameter. No accessory muscle use. no crackles. Wheezing resolved on my bedside exam but patient was still having coughing bouts. ABDOMEN: Soft, bowel sounds present, nontender, no distention. CENTRAL NERVOUS SYSTEM: Alert and oriented x3. No facial droop. Speech is clear. Obeys simple commands. Moves extremities. EXTREMITIES: No edema, no erythema seen. Results & Data Results & Data ([facility]) Vital Signs (Past 12 Hours) Vital Signs Temp Pulse Pulse Resp BP Pulse Ox 10/28/20 16:00 96 H 10/28/20 15:45 36.8 C 86 19 151/87 H 92 10/28/20 15:11 117 H 20 96 10/28/20 15:00 93 10/28/20 12:58 96 10/28/20 12:01 36.8 C 108 H 16 130/84 93 10/28/20 11:07 102 H 22 94 10/28/20 08:48 80 10/28/20 07:46 84 20 92 (1) Asthma exacerbation Asthma persistence: persistent Asthma severity: moderate Qualified Code(s): J45.41 - Moderate persistent asthma with (acute) exacerbation
[2020-10-28] MEDS: FLUTICASONE/VILANTEROL 200/25MCG 14 PUFFS/INHALER INH SCH (20:43)
[2020-10-28] MEDS: MONTELUKAST SODIUM 10 MG TABLET PO SCH (20:44)
[2020-10-28] MEDS: CALCIUM CARBONATE 1250MG TAB PO SCH (20:44)
[2020-10-28] MEDS: ENOXAPARIN INJ 40 MG/0.4 ML SYR SQ SCH (21:17)
[2020-10-29] MEDS: ALBUTEROL 0.083% NEBU SOLN 3 ML VIAL NEB SCH ×5 (02:20→19:23)
[2020-10-29] MEDS: HYDROcodone/HOMATROPINE SYRUP 5MG/1.5MG 5ML UDP PO PRN ×2 (05:35→18:22)
[2020-10-29] MEDS: methylPREDNISolone 40 MG in SYRINGE 0 ML IV SCH ×3 (05:35→21:54)
[2020-10-29] MEDS ORDERED: COUGH DROP (SUGAR FREE) LOZ 24 LOZ/1 BOX BUCCAL PRN (07:46)
[2020-10-29 07:47] LABS: Estimated Average Glucose 117 mg/dl; Hemoglobin A1C 5.7 % (4.5-5.6)
[2020-10-29] MEDS: BENZONATATE 100 MG CAPSULE PO SCH ×3 (08:19→21:53)
[2020-10-29] MEDS: FLUoxetine HCL 20 MG CAP PO SCH (08:19)
[2020-10-29] MEDS: NYSTATIN SUSP 500,000 U/5 ML UDC PO SCH ×4 (08:19→21:52)
[2020-10-29] MEDS: PANTOprazole 40 MG TAB PO SCH (08:19)
[2020-10-29] MEDS: lisinopril 20 MG TAB PO SCH (08:19)
[2020-10-29] MEDS: FLUTICASONE PROPIONATE NA SPR 16 GM BTL SCH ×2 (08:19→21:55)
[2020-10-29] MEDS: guaiFENesin 600 MG TABCR PO SCH (08:27)
[2020-10-29] MEDS: oxyCODONE HCL IR 5 MG TAB (IMMEDIATE RELEASE) PO PRN (08:27)
[2020-10-29] MEDS: DOXYCYCLINE HYCLATE 100 MG CAP PO SCH ×2 (09:53→21:54)
[2020-10-29] MEDS: ONDANSETRON INJ 2 MG/ML 2 ML VIAL IV PRN (10:47)
--- NOTE | 2020-10-29 11:05 | Pulmonary Consultation ---
Date of Consultation October 29, 2020 Assessment & Plan (1) Acute bronchitis: (2) Asthma exacerbation: Asthma persistence: persistent Asthma severity: moderate Qualified Code(s): J45.41 - Moderate persistent asthma with (acute) exacerbation (3) Sleep apnea: CT chest 10/27/2020 personally reviewed: Mosaicism appreciated Degenerative atelectasis bilateral lower lobes, hiatal hernia No mediastinal lymphadenopathy --Acute asthma exacerbation with acute bronchitis Failed outpatient therapy COVID-19 PCR negative Procalcitonin negative Continue with steroids, inhaled bronchodilators Patient is on Advair and montelukast at home Need Spiriva/Incruse to be added on discharge Patient should be worked up for Biologics if symptoms are still not controlled --CAILIN Continue with CPAP while in the hospital Plan: Add guaifenesin DM [id number] and the patient's cough is still not controlled continue to guaifenesin-codeine Add Incruse to the patient's regimen of Breo Patient still complains of phlegm which is not able to bring up then I will add Mucomyst nebulized Continue with Solu-Medrol. We will try to go down to every 12 hours if possible tomorrow Continue with flutter valve and incentive spirometry. Continue with doxycycline for total of 5 days. Please note the above document was generated using voice recognition software. It may contain grammatical, syntax or spelling errors.Any formal questions or concerns about the content, text or information contained within the body of this dictation should be directly addressed to the provider for clarification. History of Present Illness Attending Physician: Kota Sena MD History of Present Illness 65-year-old female past medical history of asthma, CAILIN on CPAP, GERD, clear cell carcinoma of the right kidney s/p resection in 2019 presented to hospital with worsening shortness of which has been going on for approximately 3-4 weeks. Pulmonary consulted for the same Patient is an outpatient on prednisone as well as 2 courses of antibiotics but did not improve that so she ended up in the hospital She stated that his use started approximately 3-4 weeks ago where she started to wheeze, runny nose and cough. She has a feeling of chest congestion but she is not able to bring up any phlegm. Denies any chest pain, no headache, no fever or chills. Denies any nausea or vomiting. No recent travel history. Patient is on Advair at home and has been using it on a daily basis. Social history: Lifetime non-smoker. Significant secondhand smoking history from parents as well as first has been Asthma: Strong family history of asthma in sister who is also a non-smoker Allergies Allergy/AdvReac Type Severity Reaction Status Date / Time No Known Allergies Allergy Verified 10/27/20 12:38 Home Medications Medication Instructions Recorded Confirmed Type azelastine 205.5 mcg (0.15 %) 1 sprays INTNAS BID 10/07/19 10/27/20 History nasal spray fluticasone propionate 50 1 sprays INTNAS BID 10/07/19 10/27/20 History mcg/actuation nasal spray,suspension (Flonase Allergy Relief) montelukast 10 mg tablet 10 mg PO QAM 10/07/19 10/27/20 History (Singulair) calcium carbonate 500 mg calcium 1,000 mg PO QPM tab 10/12/19 10/27/20 History (1,250 mg) chewable tablet omeprazole 20 mg capsule,delayed 20 mg PO QAM 10/12/19 10/27/20 History release sodium chloride 0.65 % nasal spray 2 sprays INTNAS QID PRN 10/12/19 10/27/20 History aerosol (Saline Nasal) albuterol sulfate 90 mcg/actuation 1 puff INHALATION QID PRN 10/19/19 10/27/20 History aerosol inhaler fluticasone propionate 230 2 puff INHALATION BID 10/19/19 10/27/20 History mcg-salmeterol 21 mcg/actuation HFA inhaler (Advair HFA) lisinopril 20 mg tablet 20 mg PO QAM 10/19/19 10/27/20 History acetaminophen 650 mg 1,300 mg PO Q12H PRN 10/27/20 10/27/20 History tablet,extended release amoxicillin 875 mg-potassium 1 tab PO BID 10/27/20 10/27/20 History clavulanate 125 mg tablet docusate sodium 50 mg capsule 50 mg PO QAM 10/27/20 10/27/20 History (Colace Clear) fluoxetine 40 mg capsule 40 mg PO DAILY 10/27/20 10/27/20 History methylprednisolone 4 mg tablets in 4 mg PO DIRECTED 10/27/20 10/27/20 History a dose pack polyethylene glycol 3350 17 17 g PO DAILY PRN 10/27/20 10/27/20 History gram/dose oral powder (Miralax) Patient History Medical History (Updated 10/29/20 @ 17:53 by Henny Santiago MD) Anxiety Asthma uses PRN INH at least once per day, Advair BID Benign thyroid cyst Clear cell carcinoma of right kidney s/p resection Constipation Depression Fall recent fall 10/01/2019 - tripped over dog -- left rib fractures GERD (gastroesophageal reflux disease) Hiatal hernia HTN (hypertension) Kidney mass Osteoarthritis Sleep apnea CPAP, not using at all for the past year due to sinus issues Tachycardia Recent workup by PCP included stress test and Zio patch. No sustained arrhythmias, few runs of SVT. No ischemia on stress echo. Surgical History (Updated 10/27/20 @ 14:08 by Betsy Tesfaye PA-C) H/O section H/O partial nephrectomy 10/2019 History of appendectomy History of cholecystectomy History of colonoscopy History of esophagogastroduodenoscopy (EGD) History of hysterectomy History of tooth extraction Nausea and vomiting after administration of anesthetic agent Family History Mother Nephrolithiasis Hypertension Other No family history of adverse response to anesthesia Social History Smoking Status: Never smoker Second Hand Exposure: Yes (as a child, ex was a smoker); Hx Alcohol Use: Yes Alcohol type: beer and wine Hx Substance Use: No Preferred Language: Syriac Communication Ability: Effective Spool Worker Required: No Beliefs That Will Affect Care: None marital status: Current Living Situation: Family Current Living Situation Comment: lives with kids current occupational status: retired Other Information That Helps Us Care for You: Yes (spiritual care and talking) Feels Safe at Home: Yes Safety Concerns: Feels Safe At This Time Assistive Devices: None Assistive Devices Comment: hasnt been using CPAP since was recalled Review of Systems Review of Systems: All systems reviewed & are unremarkable except as noted in HPI & below Physical Exam Physical Exam: Constitutional: No acute distress HEENT: EOMI, PERRLA Respiratory system: Decreased air entry bilaterally, no rhonchi, mild crackles bilateral lower lobes, minimal expiratory wheeze CVS: S1-S2 positive, no murmurs or gallops Abdomen: Soft, nontender, nondistended, positive bowel sounds x4, obese Extremities: +2 pulses bilaterally radialis/ dorsalis pedis, no cyanosis, no edema Neuro: Awake alert oriented x3 Psych: Normal mood and affect G/U: No Mary Skin: no rashes, warm and dry Lymphatic: no cervical or axillary lymphadenopathy Results & Data Results & Data ([facility]) Vital Signs (Past 12 Hours) Vital Signs Temp Pulse Pulse Pulse Resp BP Pulse Ox 10/29/20 10:32 86 10/29/20 07:16 89 18 98 10/29/20 07:02 36.6 C 84 20 131/84 93 10/29/20 03:03 36.5 C 87 18 121/74 92 10/29/20 02:21 87 20 97 10/29/20 00:42 84 10/28/20 23:30 92 H 16 92 10/28/20 23:25 36.3 C L 81 19 133/70 92 10/28/20 23:21 92 H 18 92 10/28/20 06:48 10/28/20 06:48 PG Care Time/CCT Total # of Minutes Spent Total Time Spent with Patient: Total time spent is greater than 50% in coordination of care (as documented) at patient's floor/unit and/or counseling patient: Coding Level of Care Code 99551 Inpt Consult Level 3 Diagnoses Acute bronchitis J20.9 Asthma exacerbation J45.41 Asthma persistence: persistent Asthma severity: moderate Sleep apnea G47.30
[2020-10-29] MEDS: guaiFENesin/DEXTROM SYRUP 100MG/10MG 5ML UDC PO SCH ×2 (13:59→17:24)
[2020-10-29] MEDS: UMECLIDINIUM BROMIDE 62.5MCG/BLISTER 7 PUFFS/INHALER INH SCH (14:00)
--- NOTE | 2020-10-29 17:50 | Hospitalist Progress Note ---
Date of Service October 29, 2020 Assessment & Plan (1) Asthma exacerbation: (2) Bronchitis: (3) Thrush: Plan: 65-year-old F w/ PMH of asthma (last exacerbation long time ago), CAILIN compliant with CPAP, HTN, GERD, obesity, history of clear cell carcinoma of right kidney s/p partial nephrectomy in 2019, nephrolithiasis, depression who presents to ED 10/27 secondary to unresolving dry cough (w/ thick scant whitish sputum), dry heaves, SOB, wheezing and belly pain (2/2 cough) since last 3 weeks despite 3 courses of oral steroid and 1 course of ATB. Admitting CTA chest negative for PE or infectious process. Admitting ABG shows hypocarbia and patient can speak in full sentences. She is being managed for the following: #. Acute exacerbation of asthma Wheezing on auscultation with bouts of dry cough frequently, patient reports same as yesterday. We will continue with IV steroid 3 times a day. Pulm consulted for difficult to control asthma c/w albuterol nebulization lizzy and as needed ipratropium for increased symptoms. Continue to monitor clinically for respiratory stress and fatigue/altered mentation/inability to complete sentences/normal PCO2 in ABG. Do ABG as needed. In that scenario might need to transfer to ICU. Appreciate pulm recommendation. #. Bronchitis Possible bronchitis, dry cough. We will treat her with 5-day course of doxycycline Continue with Leodan Blankenship #. Sinus tachycardia Likely from the ongoing distress. We will continue to monitor #. Hypertension History of hypertension, blood pressure within normal range. Continue with home medication. Stopped lisinopril 10/29, started her on HCTZ 10/29 continue to monitor if lisinopril was the source of cough #. PABLO Mild elevation of creatinine at presentation. Improved #. CAILIN on CPAP Continue with home CPAP #. Oral thrush Continue with nystatin swish and swallow. Avoid eating/drinking anything for 30 minutes to prolong the medication contact with oral mucosa. Upon discharge, patient advised to swish and spit plain water every time after the use of steroid inhalers. Will get CBC maykel, Pulm consult, start miralax, stop lisinopril, start HCTZ 12.5, BMP maykel . Her DPOA is her boyfriend per her (Al Ralph). She is full code until she is deemed vegetative in a situation such condition arises. Admission and Anticipated Discharge Date Admission Date: October 27, 2020 Subjective Patient was sitting up in bed, coughing frequently x dry, on RA. Patient denies Headache, Dizziness, Fever, Chills, Sore throat, Cough, Chest pain, palpitations, SOB, pain/burning while passing urine. Last Bowel movement [few days ago], pt just started eating ok after iv steroid abated her cough little bit. States she is same as/slightly better than yesterday. Yesterday in the evening, she again had bouts of continuous cough associated with whitish mucus production which was disturbing per her. Physical Exam Physical Exam: GENERAL: Alert and oriented x3. NAD, on RA. Frequently coughing at bedside exam HEENT: No pallor, no icterus. Pupils equal, round and reactive to light. Oral mucosa moist. NECK: No JVD, no neck masses. HEART: S1 and S2 heard. Regular rate and rhythm. No murmur, no gallop. RESPIRATORY SYSTEM: Normal AP diameter. No accessory muscle use. no crackles. Wheezing b/l present which was not present yesterday. ABDOMEN: Soft, bowel sounds present, nontender, no distention. CENTRAL NERVOUS SYSTEM: Alert and oriented x3. No facial droop. Speech is clear. Obeys simple commands. Moves extremities. EXTREMITIES: No edema, no erythema seen. Results & Data Results & Data ([facility]) Vital Signs (Past 12 Hours) Vital Signs Temp Pulse Pulse Pulse Resp BP BP 10/29/20 15:59 36.4 C L 19 158/94 H 10/29/20 15:46 104 H 22 10/29/20 15:05 90 10/29/20 11:26 36.6 C 87 19 132/78 10/29/20 11:07 87 18 10/29/20 10:32 86 10/29/20 07:16 89 18 10/29/20 07:02 36.6 C 84 20 131/84 Pulse Ox 10/29/20 15:59 94 10/29/20 15:46 96 10/29/20 15:05 10/29/20 11:26 92 10/29/20 11:07 94 10/29/20 10:32 10/29/20 07:16 98 10/29/20 07:02 93 (1) Asthma exacerbation Asthma persistence: persistent Asthma severity: moderate Qualified Code(s): J45.41 - Moderate persistent asthma with (acute) exacerbation
[2020-10-29] MEDS: ENOXAPARIN INJ 40 MG/0.4 ML SYR SQ SCH (21:53)
[2020-10-29] MEDS: FLUTICASONE/VILANTEROL 200/25MCG 14 PUFFS/INHALER INH SCH (21:53)
[2020-10-29] MEDS: CALCIUM CARBONATE 1250MG TAB PO SCH (21:54)
[2020-10-29] MEDS: MONTELUKAST SODIUM 10 MG TABLET PO SCH (21:54)
[2020-10-30] MEDS: ALBUTEROL 0.083% NEBU SOLN 3 ML VIAL NEB SCH ×7 (00:03→22:49)
[2020-10-30] MEDS: guaiFENesin/DEXTROM SYRUP 100MG/10MG 5ML UDC PO SCH ×5 (01:15→23:17)
[2020-10-30] MEDS: HYDROcodone/HOMATROPINE SYRUP 5MG/1.5MG 5ML UDP PO PRN ×2 (03:28→21:15)
[2020-10-30] MEDS: HYDROmorphone INJ 0.5 MG/0.5 ML SYR IV PRN (04:41)
[2020-10-30] MEDS: ACETAMINOPHEN 325 MG TAB PO PRN (05:14)
[2020-10-30] MEDS: methylPREDNISolone 40 MG in SYRINGE 0 ML IV SCH ×2 (05:15→21:16)
[2020-10-30 08:01] LABS: Hematocrit (blood only) 35.4 % (37-47); Hemoglobin 11.4 g/dL (12.0-16.0); Mean Corpuscular Hemoglobin 28.9 pg (25-34); Mean Corpuscular Hgb Conc 32.2 g/dL (32-36); Mean Corpuscular Volume 89.6 fL (80-100); Mean Platelet Volume 8.5 fL (7.4-10.4); Platelet Count 248 K/uL (130-400); RDW Coefficient of Variation 15.2 % (11.5-14.5); RDW Standard Deviation 49.7 fL (36.4-46.3); Red Blood Count 3.95 M/uL (4.2-5.4); White Blood Count 8.03 K/uL (4.8-10.8)
[2020-10-30] MEDS: PANTOprazole 40 MG TAB PO SCH (08:10)
[2020-10-30] MEDS: DOXYCYCLINE HYCLATE 100 MG CAP PO SCH ×2 (08:10→21:17)
[2020-10-30] MEDS: BENZONATATE 100 MG CAPSULE PO SCH ×3 (08:10→21:17)
[2020-10-30] MEDS: POLYETHYLENE (MIRALAX) 17 GM PACK PO SCH (08:11)
[2020-10-30] MEDS: NYSTATIN SUSP 500,000 U/5 ML UDC PO SCH ×4 (08:11→21:15)
[2020-10-30] MEDS: FLUoxetine HCL 20 MG CAP PO SCH (08:11)
[2020-10-30] MEDS: UMECLIDINIUM BROMIDE 62.5MCG/BLISTER 7 PUFFS/INHALER INH SCH (08:11)
[2020-10-30] MEDS: FLUTICASONE PROPIONATE NA SPR 16 GM BTL SCH ×2 (08:11→21:18)
[2020-10-30] MEDS: hydroCHLOROthiazide 25 MG TAB PO SCH (08:11)
[2020-10-30 08:30] LABS: BUN Creatinine Ratio 19.6 (10-20); Calcium 8.7 mg/dl (8.5-10.1); Creatinine Clr Calc Pharmacy 88.4 ml/min; Est GFR (African American) 90.3 ml/min; Est GFR (Non-African American) 77.9 ml/min; Magnesium 2.4 mg/dl (1.8-2.4); Potassium 3.9 mmol/L (3.5-5.1)
[2020-10-30] MEDS: ONDANSETRON INJ 2 MG/ML 2 ML VIAL IV PRN (09:17)
--- NOTE | 2020-10-30 11:14 | Pulmonology Progress Note ---
Date of Service October 30, 2020 Assessment & Plan (1) Acute bronchitis: (2) Asthma exacerbation: Asthma persistence: persistent Asthma severity: moderate Qualified Code(s): J45.41 - Moderate persistent asthma with (acute) exacerbation (3) Sleep apnea: Plan: CT chest 10/27/2020 personally reviewed: Mosaicism appreciated Degenerative atelectasis bilateral lower lobes, hiatal hernia No mediastinal lymphadenopathy --Acute asthma exacerbation with acute bronchitis Failed outpatient therapy COVID-19 PCR negative Procalcitonin negative Continue with steroids, inhaled bronchodilators Patient is on Advair and montelukast at home Need Spiriva 1.25mcg to be added on discharge Patient should be worked up for Biologics if symptoms are still not controlled --CAILIN Continue with CPAP while in the hospital --GERD with hiatal hernia I think this is also playing a role in her cough especially when it wakes her up at night She is already on Protonix Plan: Continue guaifenesin DM [id number] and the patient's cough is still not controlled continue to guaifenesin-codeine Patient still complains of phlegm which is not able to bring up then I will add Mucomyst nebulized Titrate down Solu-Medrol to 40 mg every 12 hours Continue with flutter valve and incentive spirometry. Continue with doxycycline for total of 5 days. Please note the above document was generated using voice recognition software. It may contain grammatical, syntax or spelling errors.Any formal questions or concerns about the content, text or information contained within the body of this dictation should be directly addressed to the provider for clarification. Admission and Anticipated Discharge Date Admission Date: October 27, 2020 Subjective Patient seen and examined at bedside. No acute distress. Patient did fairly well up until 3 AM when he she started to have coughing fit. Which lasted for approximately an hour. She is bringing up clear phlegm. Denies any chest pain. Fair appetite. Used CPAP all night. Review of Systems Review of Systems: All systems reviewed & are unremarkable except as noted in Subjective Physical Exam Physical Exam: Constitutional: No acute distress HEENT: EOMI, PERRLA Respiratory system: Decreased air entry bilaterally, no rhonchi, mild crackles bilateral lower lobes, minimal wheeze bilaterally CVS: S1-S2 positive, no murmurs or gallops Abdomen: Soft, nontender, nondistended, positive bowel sounds x4, obese Extremities: +2 pulses bilaterally radialis/ dorsalis pedis, no cyanosis, no edema Neuro: Awake alert oriented x3 Psych: Normal mood and affect G/U: No Mary Skin: no rashes, warm and dry Lymphatic: no cervical or axillary lymphadenopathy Results & Data Results & Data ([facility]) Vital Signs (Past 12 Hours) Vital Signs Temp Pulse Pulse Pulse Resp BP BP 10/30/20 10:57 91 H 18 10/30/20 07:40 36.5 C 80 20 137/84 10/30/20 07:14 85 18 10/30/20 03:54 36.7 C 100 H 18 137/81 10/30/20 03:35 22 10/30/20 00:15 86 10/29/20 23:36 36.7 C 93 H 20 155/85 H Pulse Ox 10/30/20 10:57 94 10/30/20 07:40 92 10/30/20 07:14 95 10/30/20 03:54 92 10/30/20 03:35 94 10/30/20 00:15 10/29/20 23:36 94 10/30/20 07:37 10/30/20 07:37 PG Care Time/CCT Total # of Minutes Spent Total Time Spent with Patient: Total time spent is greater than 50% in coordination of care (as documented) at patient's floor/unit and/or counseling patient: Coding Level of Care Code 14392 Subseq Hosp Care Lvl 3 Diagnoses Acute bronchitis J20.9 Asthma exacerbation J45.41 Asthma persistence: persistent Asthma severity: moderate Sleep apnea G47.30
--- NOTE | 2020-10-30 19:33 | Hospitalist Progress Note ---
Date of Service October 30, 2020 Assessment & Plan (1) Asthma exacerbation: (2) Bronchitis: (3) Thrush: Plan: 65-year-old F w/ PMH of asthma (last exacerbation long time ago), CAILIN compliant with CPAP, HTN, GERD, obesity, history of clear cell carcinoma of right kidney s/p partial nephrectomy in 2019, nephrolithiasis, depression who presents to ED 10/27 secondary to unresolving dry cough (w/ thick scant whitish sputum), dry heaves, SOB, wheezing and belly pain (2/2 cough) since last 3 weeks despite 3 courses of oral steroid and 1 course of ATB. Admitting CTA chest negative for PE or infectious process. Admitting ABG shows hypocarbia and patient can speak in full sentences. She is being managed for the following: #. Acute exacerbation of asthma Wheezing has improved today, patient reports some improvement in her cough. Can transfer out of PCU to general medical floor. c/w nebulization, IV steroids [weaned down to 2 times a day] Continue with incentive spirometry. Pulmonology on board: Add Spiriva 1.25 MCG upon discharge #. Bronchitis Possible bronchitis, dry cough. Continue with 5-day course of doxycycline Continue with Tessalon Perles #. Sinus tachycardia Likely from the ongoing distress. Resolved #. Hypertension History of hypertension, blood pressure within normal range. Continue with home medication. Stopped lisinopril 10/29, started her on HCTZ 10/29 continue to monitor if lisinopril was the source of cough #. PABLO Mild elevation of creatinine at presentation. Improved #. CAILIN on CPAP Continue with home CPAP #. Oral thrush Continue with nystatin swish and swallow. Avoid eating/drinking anything for 30 minutes to prolong the medication contact with oral mucosa. Upon discharge, patient advised to swish and spit plain water every time after the use of steroid inhalers. Her DPOA is her boyfriend per her (Al Rosas). She is full code until she is deemed vegetative in a situation such condition arises. Admission and Anticipated Discharge Date Admission Date: October 27, 2020 Subjective Patient was sitting up in bed, coughing frequently x dry, on RA. Patient denies Headache, Dizziness, Fever, Chills, Sore throat, Cough, Chest pain, palpitations, SOB, pain/burning while passing urine. Last Bowel movement [few days ago], she is eating okay. She is on MiraLAX, will add Colace lizzy, change to prn when she starts moving bowel. Overnight she had bouts of cough again. But her cough seems to be decreasing though still present. Can transfer her out of PCU to general medical floor. Physical Exam Physical Exam: GENERAL: Alert and oriented x3. NAD, on RA. Frequently coughing at bedside exam HEENT: No pallor, no icterus. Pupils equal, round and reactive to light. Oral mucosa moist. NECK: No JVD, no neck masses. HEART: S1 and S2 heard. Regular rate and rhythm. No murmur, no gallop. RESPIRATORY SYSTEM: Normal AP diameter. No accessory muscle use. no crackles. No wheezing noted today, which was there yesterday. ABDOMEN: Soft, bowel sounds present, nontender, no distention. CENTRAL NERVOUS SYSTEM: Alert and oriented x3. No facial droop. Speech is clear. Obeys simple commands. Moves extremities. EXTREMITIES: No edema, no erythema seen. Results & Data Results & Data ([facility]) Vital Signs (Past 12 Hours) Vital Signs Temp Pulse Pulse Resp BP Pulse Ox 10/30/20 15:47 36.6 C 84 20 128/81 96 10/30/20 15:39 86 95 10/30/20 12:00 36.7 C 82 18 124/78 94 10/30/20 10:57 91 H 18 94 10/30/20 07:40 36.5 C 80 20 137/84 92 (1) Asthma exacerbation Asthma persistence: persistent Asthma severity: moderate Qualified Code(s): J45.41 - Moderate persistent asthma with (acute) exacerbation
[2020-10-30] MEDS: ENOXAPARIN INJ 40 MG/0.4 ML SYR SQ SCH (21:16)
[2020-10-30] MEDS: MONTELUKAST SODIUM 10 MG TABLET PO SCH (21:17)
[2020-10-30] MEDS: CALCIUM CARBONATE 1250MG TAB PO SCH (21:17)
[2020-10-30] MEDS: FLUTICASONE/VILANTEROL 200/25MCG 14 PUFFS/INHALER INH SCH (21:18)
[2020-10-30] MEDS: DOCUSATE SODIUM 100 MG CAP PO SCH (22:33)
[2020-10-31] MEDS: HYDROmorphone INJ 0.5 MG/0.5 ML SYR IV PRN (00:11)
[2020-10-31] MEDS: ALBUTEROL 0.083% NEBU SOLN 3 ML VIAL NEB SCH ×4 (03:52→15:43)
[2020-10-31] MEDS: guaiFENesin/DEXTROM SYRUP 100MG/10MG 5ML UDC PO SCH ×4 (05:59→23:30)
[2020-10-31 07:38] LABS: Creatinine Clr Calc Pharmacy 75.7 ml/min; Est GFR (African American) 75.3 ml/min; Est GFR (Non-African American) 64.9 ml/min
[2020-10-31] MEDS: UMECLIDINIUM BROMIDE 62.5MCG/BLISTER 7 PUFFS/INHALER INH SCH (08:16)
[2020-10-31] MEDS: BENZONATATE 100 MG CAPSULE PO SCH ×3 (08:16→20:50)
[2020-10-31] MEDS: methylPREDNISolone 40 MG in SYRINGE 0 ML IV SCH (08:16)
[2020-10-31] MEDS: hydroCHLOROthiazide 25 MG TAB PO SCH (08:16)
[2020-10-31] MEDS: FLUoxetine HCL 20 MG CAP PO SCH (08:17)
[2020-10-31] MEDS: PANTOprazole 40 MG TAB PO SCH (08:17)
[2020-10-31] MEDS: DOXYCYCLINE HYCLATE 100 MG CAP PO SCH ×2 (08:17→20:50)
[2020-10-31] MEDS: FLUTICASONE PROPIONATE NA SPR 16 GM BTL SCH ×2 (08:18→21:22)
[2020-10-31] MEDS: NYSTATIN SUSP 500,000 U/5 ML UDC PO SCH ×4 (08:18→20:50)
[2020-10-31] MEDS: POLYETHYLENE (MIRALAX) 17 GM PACK PO SCH (08:18)
[2020-10-31] MEDS: DOCUSATE SODIUM 100 MG CAP PO SCH ×2 (08:19→20:51)
[2020-10-31] MEDS: oxyCODONE HCL IR 5 MG TAB (IMMEDIATE RELEASE) PO PRN (11:54)
--- NOTE | 2020-10-31 14:32 | Pulmonology Progress Note ---
Date of Service October 31, 2020 Assessment & Plan (1) Acute bronchitis: (2) Asthma exacerbation: Asthma persistence: persistent Asthma severity: moderate Qualified Code(s): J45.41 - Moderate persistent asthma with (acute) exacerbation (3) Sleep apnea: Plan: CT chest 10/27/2020 personally reviewed: Mosaicism appreciated Degenerative atelectasis bilateral lower lobes, hiatal hernia No mediastinal lymphadenopathy --Acute asthma exacerbation with acute bronchitis Failed outpatient therapy COVID-19 PCR negative Procalcitonin negative Continue with steroids, inhaled bronchodilators Patient is on Advair and montelukast at home Need Spiriva 1.25mcg to be added on discharge Patient should be worked up for Biologics if symptoms are still not controlled --CAILIN Continue with CPAP while in the hospital --GERD with hiatal hernia I think this is also playing a role in her cough especially when it wakes her up at night She is already on Protonix Plan: Continue guaifenesin DM [id number] Titrate down Solu-Medrol to 40 mg every 12 hours Continue with flutter valve and incentive spirometry. Start tapering prednisone as of tomorrow. 40 mg for 3 days followed by 20 mg for 3 days and then stop. Add Spiriva 1.25 MCG, 2 puffs twice daily to patient's inhalers at home No further recommendation from pulmonary perspective. Please call directly with any questions. Please note the above document was generated using voice recognition software. It may contain grammatical, syntax or spelling errors.Any formal questions or concerns about the content, text or information contained within the body of this dictation should be directly addressed to the provider for clarification. Admission and Anticipated Discharge Date Admission Date: October 27, 2020 Subjective Patient seen and examined at bedside. No acute distress, no adverse events overnight. Patient was able to sleep well last night. She used her CPAP. Says that the cough is significantly decreased in amount. Phlegm is easier to bring up. Denies any hemoptysis. Fair appetite. Review of Systems Review of Systems: All systems reviewed & are unremarkable except as noted in Subjective Physical Exam Physical Exam: Constitutional: No acute distress HEENT: EOMI, PERRLA Respiratory system: Decreased air entry bilaterally, no rhonchi, mild crackles bilateral lower lobes, no wheeze CVS: S1-S2 positive, no murmurs or gallops Abdomen: Soft, nontender, nondistended, positive bowel sounds x4, obese Extremities: +2 pulses bilaterally radialis/ dorsalis pedis, no cyanosis, no edema Neuro: Awake alert oriented x3 Psych: Normal mood and affect G/U: No Mary Skin: no rashes, warm and dry Lymphatic: no cervical or axillary lymphadenopathy Results & Data Results & Data ([facility]) Vital Signs (Past 12 Hours) Vital Signs Temp Pulse Pulse Pulse Resp BP BP 10/31/20 11:24 104 H 19 10/31/20 10:46 36.5 C 75 18 147/91 H 10/31/20 08:00 74 10/31/20 07:57 36.5 C 78 20 146/91 H 10/31/20 07:29 83 18 10/31/20 03:46 60 12 10/31/20 03:39 36.6 C 86 116/78 Pulse Ox 10/31/20 11:24 97 10/31/20 10:46 94 10/31/20 08:00 10/31/20 07:57 94 10/31/20 07:29 95 10/31/20 03:46 90 10/31/20 03:39 90 10/30/20 07:37 10/31/20 06:20 PG Care Time/CCT Total # of Minutes Spent Total Time Spent with Patient: Total time spent is greater than 50% in coordination of care (as documented) at patient's floor/unit and/or counseling patient: Coding Level of Care Code 43196 Subseq Hosp Care Lvl 2 Diagnoses Acute bronchitis J20.9 Asthma exacerbation J45.41 Asthma persistence: persistent Asthma severity: moderate Sleep apnea G47.30
[2020-10-31] MEDS ORDERED: ALBUT/IPRATROP 3MG/0.5MG NEB 3 ML VIAL NEB PRN (18:13)
--- NOTE | 2020-10-31 18:15 | Hospitalist Progress Note ---
Date of Service October 31, 2020 Assessment & Plan (1) Asthma exacerbation: Plan: moderate persistent asthma with acute exacerbation. Failed outpatient therapy. She has improved on intravenous steroids and will be de-escalated to prednisone taper tomorrow. Pulm following and making treatment recommendations. To get spiriva at discharge. Cont bronchodilator therapy PRN. follow-up with outpatient pulmonology and consider biologic therapy at that time if not imp roved. Cont doxycycline. Cont flutter valve and incentive spirometry. Cont benzonatate 100mg PO TID and hycodan cough syrup prn. Cont Singulair per home regimen. (2) Thrush: Plan: Nystatin swish (3) Depression: Plan: cont fluoxetine (4) Sleep apnea: Plan: cont CPAP QHS (5) Hypertension: Plan: lisinopril discontinued by previous provider and replaced with HCTZ 12.5mg PO daily. Cont this and BMP in two weeks with PCP. BP at goal. (6) DVT prophylaxis: Plan: Lovenox Full Dispo-to home likely tomorrow when feeling better. Iesha Peraza DO [facility] Hospitalist Admission and Anticipated Discharge Date Admission Date: October 27, 2020 Subjective 65 yo F admitted for asthma exacerbation denies SOB but is still having excessive coughing no wheezing no fever tolerating PO Review of Systems Review of Systems: All systems were reviewed and negative except as indicated in HPI above. Physical Exam Physical Exam: CONSTITUTIONAL: WNWD, vitals as above, generally well- appearing EYES: normal conjunctivae, no scleral icterus ENT: external ear and nose normal, MMM RESPIRATORY: clear to auscultation bilaterally, no crackles, rales or wheezes, normal respiratory effort CARDIOVASCULAR: regular rate and rhythm, S1 and 2 heard without murmurs, gallops or rubs, no JVD, no peripheral edema GASTROINTESTINAL: normal bowel sounds, soft, nontender, nondistended. MUSCULOSKELETAL: strength 5/5 throughout, head is normocephalic and atraumatic SKIN: warm and dry NEUROLOGIC: CN 2-12 grossly intact, no sensory deficit, normal cognition, normal speech, no tremor PSYCHIATRIC: alert cooperative and oriented to person, place and time. Results & Data Results & Data ([facility]) Vital Signs (Past 12 Hours) Vital Signs Temp Pulse Pulse Resp BP BP Pulse Ox 10/31/20 16:01 36.6 C 85 20 118/76 94 10/31/20 15:43 86 18 96 10/31/20 15:12 96 H 10/31/20 11:24 104 H 19 97 10/31/20 10:46 36.5 C 75 18 147/91 H 94 10/31/20 08:00 74 10/31/20 07:57 36.5 C 78 20 146/91 H 94 10/31/20 07:29 83 18 95 Laboratory Results [facility] 10/31/20 06:20 Creatinine 0.93 Medications Administered Current Inpatient Medications Acetaminophen (Acetaminophen 325 Mg Tab) 650 mg PO Q4H PRN PRN Reason: Pain or Fever Stop: 11/26/20 15:25 Last Admin: 10/30/20 05:14 Dose: 650 mg Documented by: Al Hydrox/Mg Hydrox/Simethicone (Aluminum/Magnesium Susp 30 Ml Udc) 15 ml PO Q4H PRN PRN Reason: Dyspepsia Stop: 11/26/20 15:25 Albuterol (Albut/Ipratrop 3mg/0.5mg Neb 3 Ml Vial) 3 ml NEB QIDR PRN PRN Reason: SOB/wheezing Stop: 11/30/20 18:59 Benzonatate (Benzonatate 100 Mg Capsule) 100 mg PO TID [facility] Stop: 11/26/20 15:25 Last Admin: 10/31/20 14:53 Dose: 100 mg Documented by: Calcium Carbonate (Calcium Carbonate 1250mg Tab) 1,250 mg PO QPM [facility] Stop: 11/26/20 20:59 Last Admin: 10/30/20 21:17 Dose: 1,250 mg Documented by: Docusate Sodium (Docusate Sodium 100 Mg Cap) 100 mg PO BID [facility] Stop: 11/29/20 20:59 Last Admin: 10/31/20 08:19 Dose: 100 mg Documented by: Doxycycline Hyclate (Doxycycline Hyclate 100 Mg Cap) 100 mg PO Q12H [facility]; Protocol Stop: 11/02/20 01:01 Last Admin: 10/31/20 08:17 Dose: 100 mg Documented by: Enoxaparin Sodium (Enoxaparin Inj 40 Mg/0.4 Ml Syr) 40 mg SQ Q24H [facility] Stop: 11/26/20 21:59 Last Admin: 10/30/20 21:16 Dose: 40 mg Documented by: Fluoxetine HCl (Fluoxetine Hcl 20 Mg Cap) 40 mg PO DAILY [facility] Stop: 11/27/20 08:59 Last Admin: 10/31/20 08:17 Dose: 40 mg Documented by: Fluticasone Propionate (Fluticasone Propionate Na Spr 16 Gm Btl) 1 sprays NA BID [facility] Stop: 11/26/20 20:59 Last Admin: 10/31/20 08:18 Dose: 1 sprays Documented by: Fluticasone/Vilanterol (Fluticasone/Vilanterol 200/25mcg 14 Puffs/Inhaler) 1 puffs INH QPM [facility]; Protocol Stop: 11/26/20 20:59 Last Admin: 10/30/20 21:18 Dose: 1 puffs Documented by: Guaifenesin/Dextromethorphan (Guaifenesin/Dextrom Syrup 100mg/10mg 5ml Udc) 5 ml PO Q6H [facility] Stop: 11/28/20 12:29 Last Admin: 10/31/20 11:51 Dose: 5 ml Documented by: Hydrochlorothiazide (Hydrochlorothiazide 25 Mg Tab) 12.5 mg PO QAM [facility] Stop: 11/29/20 08:59 Last Admin: 10/31/20 08:16 Dose: 12.5 mg Documented by: Hydrocodone Bit/Homatropine Methylb (Hydrocodone/Homatropine Syrup 5mg/1.5mg 5ml Udp) 5 ml PO Q8H PRN PRN Reason: Cough Stop: 11/10/20 15:25 Last Admin: 10/30/20 21:15 Dose: 5 ml Documented by: Magnesium Hydroxide (Magnesium Hydroxide Susp 30 Ml Udc) 30 ml PO Q12H PRN PRN Reason: Constipation Stop: 11/26/20 15:25 Menthol (Cough Drop (Sugar Free) Cristi 24 Cristi/1 Box) 1 cristi BUCCAL PRN PRN PRN Reason: Sore Throat Stop: 11/28/20 07:45 Montelukast Sodium (Montelukast Sodium 10 Mg Tablet) 10 mg PO QPM [facility] Stop: 11/26/20 20:59 Last Admin: 10/30/20 21:17 Dose: 10 mg Documented by: Nystatin (Nystatin Susp 500,000 U/5 Ml Udc) 5 ml PO QID [facility] Stop: 11/03/20 16:59 Last Admin: 10/31/20 16:30 Dose: 5 ml Documented by: Ondansetron HCl (Ondansetron Inj 2 Mg/Ml 2 Ml Vial) 4 mg IV Q6H PRN PRN Reason: Nausea Stop: 11/26/20 15:25 Last Admin: 10/30/20 09:17 Dose: 4 mg Documented by: Pantoprazole Sodium (Pantoprazole 40 Mg Tab) 40 mg PO QAM INDER Stop: 11/27/20 08:59 Last Admin: 10/31/20 08:17 Dose: 40 mg Documented by: Polyethylene Glycol (Polyethylene (Miralax) 17 Gm Pack) 17 gm PO DAILY INDER Stop: 11/29/20 08:59 Last Admin: 10/31/20 08:18 Dose: 17 gm Documented by: Prednisone (Prednisone 20 Mg Tab) 40 mg PO DAILY [facility] Stop: 12/01/20 08:59 Umeclidinium Kimmell (Umeclidinium Kimmell 62.5mcg/Blister 7 Puffs/Inhaler) 1 puffs INH DAILY INDER Stop: 11/28/20 12:29 Last Admin: 10/31/20 08:16 Dose: 1 puffs Documented by: (1) Asthma exacerbation Asthma persistence: persistent Asthma severity: moderate Qualified Code(s): J45.41 - Moderate persistent asthma with (acute) exacerbation
[2020-10-31] MEDS: MONTELUKAST SODIUM 10 MG TABLET PO SCH (20:50)
[2020-10-31] MEDS: ENOXAPARIN INJ 40 MG/0.4 ML SYR SQ SCH (20:50)
[2020-10-31] MEDS: CALCIUM CARBONATE 1250MG TAB PO SCH (20:50)
[2020-10-31] MEDS: FLUTICASONE/VILANTEROL 200/25MCG 14 PUFFS/INHALER INH SCH (21:22)
[2020-10-31] MEDS: HYDROcodone/HOMATROPINE SYRUP 5MG/1.5MG 5ML UDP PO PRN (23:30)
[2020-11-01] MEDS: guaiFENesin/DEXTROM SYRUP 100MG/10MG 5ML UDC PO SCH ×3 (05:58→18:00)
[2020-11-01] MEDS ORDERED: predniSONE 20 MG TAB PO SCH (09:00)
[2020-11-01] MEDS: FLUTICASONE PROPIONATE NA SPR 16 GM BTL SCH (09:19)
[2020-11-01] MEDS: DOCUSATE SODIUM 100 MG CAP PO SCH (09:19)
[2020-11-01] MEDS: BENZONATATE 100 MG CAPSULE PO SCH ×2 (09:19→13:41)
[2020-11-01] MEDS: FLUoxetine HCL 20 MG CAP PO SCH (09:19)
[2020-11-01] MEDS: PANTOprazole 40 MG TAB PO SCH (09:20)
[2020-11-01] MEDS: hydroCHLOROthiazide 25 MG TAB PO SCH (09:20)
[2020-11-01] MEDS: DOXYCYCLINE HYCLATE 100 MG CAP PO SCH (09:20)
[2020-11-01] MEDS: UMECLIDINIUM BROMIDE 62.5MCG/BLISTER 7 PUFFS/INHALER INH SCH (09:21)
[2020-11-01] MEDS: POLYETHYLENE (MIRALAX) 17 GM PACK PO SCH (09:22)
[2020-11-01] MEDS: NYSTATIN SUSP 500,000 U/5 ML UDC PO SCH ×3 (09:22→17:16)
--- NOTE | 2020-11-01 15:27 | Hospitalist Progress Note ---
Date of Service November 01, 2020 Assessment & Plan (1) Asthma exacerbation: Plan: per Dr. Peraza's notes: moderate persistent asthma with acute exacerbation. Failed outpatient therapy. She has improved on intravenous steroids and will be de-escalated to prednisone taper tomorrow. Pulm following and making treatment recommendations. To get spiriva at discharge. Cont bronchodilator therapy PRN. follow-up with outpatient pulmonology and consider biologic therapy at that time if not improved. Cont doxycycline. Cont flutter valve and incentive spirometry. Cont benzonatate 100mg PO TID and hycodan cough syrup prn. Cont Singulair per home regimen. 10/31 stable for discharge plan: continue Advair start Spiriva complete Prednisone taper complete Guiaf-DM arrange for home nebulizer ff up with PCP in 1 week ff up with Pulmonary in 2 weeks (2) Thrush: Plan: Nystatin swish (3) Depression: Plan: cont fluoxetine (4) Sleep apnea: Plan: cont CPAP QHS (5) Hypertension: Plan: lisinopril discontinued by previous provider and replaced with HCTZ 12.5mg PO daily. Cont this and BMP in two weeks with PCP. BP at goal. (6) DVT prophylaxis: Plan: Lovenox Full Dispo-d.c home with home health [facility] ff ups per above DO Priyanka Mcdonald Hospitalist Admission and Anticipated Discharge Date Admission Date: October 27, 2020 Subjective ff up for asthma exacerbation seen resting in bed, comfortable in good spirits states she feels better overall breathing and cough is much improved no fever/chills, chest pain, palpitations, dizziness ambulated in the halls with no problems no other symptoms Review of Systems Review of Systems: all noted and negative except for above Physical Exam Physical Exam: General- oriented x 3, not in distress, speaks in sentences with no effort or accessory muscle use Eyes- anicteric Neck- no JVD Lungs- clear breath sounds bilaterally, no rales/wheezes Heart- normal rate, regular rhythm; no murmurs Abdomen- normal bowel sounds, nondistended, soft, nontender Extremities- no pretibial edema, no calf tenderness Neuro- alert, oriented x 3; no gross focal neurologic deficits Skin- warm & dry Results & Data Results & Data ([facility]) Vital Signs (Past 12 Hours) Vital Signs Temp Pulse Resp BP Pulse Ox 11/01/20 07:30 36.5 C 88 20 114/80 93 11/01/20 03:29 16 92 all noted and reviewed including below (1) Asthma exacerbation Asthma persistence: persistent Asthma severity: moderate Qualified Code(s): J45.41 - Moderate persistent asthma with (acute) exacerbation
--- NOTE | 2020-11-01 16:53 | Discharge Summary ---
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 Of significance patient received her second dose of the Covid vaccine on 09/04. Approximately 3 to 4 weeks ago she developed this upper and lower respiratory symptoms after being exposed to her brother who also had similar symptoms. She complains of sinus congestion, itchy watery eyes, rhinorrhea, postnasal drip, cough with thick productive white and euceda sputum, occasional red-tinged sputum, nausea, chest and abdominal pain with coughing, poor appetite, extreme fatigue from lack of sleep and coughing and, "I am wearing out." She does take an Advair inhaler twice a day and 2 weeks ago this was recently increased. She also has been taking her albuterol every 4 hours. She did recently get a new spacer which feels this has helped but feels she is unable to manage her symptoms at home. She has been seen by outpatient providers twice and has completed a full course of azithromycin as well as 2 full courses of prednisone. She was seen and evaluated by urgent care yesterday who prescribed her Augmentin and additional prednisone taper. She also complains of being constipated but had a very large bowel movement yesterday. She denies any fevers but complains of being chilled and clammy. She also complains of being lightheaded and dizzy and admits to having a loop recorder placed and following cardiology's because of this. She denies any inez chest pain, shortness of breath at rest, orthopnea, PND, edema, abdominal pain, diarrhea, melena or hematochezia. She does have urinary incontinence with coughing and also complains of, "thrush in her mouth." Lastly she admits to her oxygen saturations being 8889% while at home. Her O2 sats would increase whenever she would cough a significant amount of phlegm up. In ED patient did remain hemodynamically stable but she was significantly tachycardic on arrival. Her CBC was generally unremarkable. Her VBG pH was 7.38 and PCO2 was 34. Her CMP was consistent with mild elevation of creatinine of 1.28 and glucose of 137. Her procalcitonin was WNL. Her Covid was negative. When seen and evaluated in urgent care yesterday she did have a lab panel including a D-dimer. Her D-dimer was mildly elevated. Her chest CTA was negative for PE or pneumonia. In ED she received albuterol, IV methylprednisolone, Hycodan, IV fluid and IV Ativan. Admission Exam Per Admitting Provider Constitutional: WD/WN, obese, vitals as above, NAD, sitting up in bed, pleasant, conversing easily, +harsh cough noted Head: Normocephalic, Atraumatic Eyes: PERRL, conjunctivae normal, anicteric sclerae ENMT: external ear and nose normal, oropharynx +thrush Neck: trachea midline, no thyromegaly normal visual inspection Respiratory: normal respiratory effort, decreased aeration but clear b/l, no wheeze, rales, rhonchi. Normal insp/exp effort, no accessory muscle use Cardiovascular: tachycardic rate, reg rhythm, no murmur, no edema Vessels: no JVD or carotid bruit Chest: normal inspection of chest Abdomen: normal bowel sounds, soft, nontender, no hepatosplenomegaly Musculoskeletal: no cyanosis or clubbing, extremities motor strength 5/5 Skin: no rashes, warm and dry normal turgor Neurologic: PERRL, EOMI, accommodation nl, no face palsy, no dysarthria CN's II-XI intact bilaterally and moves all extremities Psychiatric: A+Ox3, euthymic affect Lymphatic: no cervical or axillary lymphadenopathy : deferred Principal Diagnosis ACUTE ASTHMA EXACERBATION, ACUTE BRONCHITIS Discharge Exam General- oriented x 3, not in distress, speaks in sentences with no effort or accessory muscle use Eyes- anicteric Neck- no JVD Lungs- clear breath sounds bilaterally, no rales/wheezes Heart- normal rate, regular rhythm; no murmurs Abdomen- normal bowel sounds, nondistended, soft, nontender Extremities- no pretibial edema, no calf tenderness Neuro- alert, oriented x 3; no gross focal neurologic deficits Skin- warm & dry Discharge Data Allergies Allergy/AdvReac Type Severity Reaction Status Date / Time No Known Allergies Allergy Verified 10/27/20 12:38 Consultations 10/27/20 12:55 ED Decision to Admit Stat 10/29/20 10:14 Consult Pulmonology Routine Ordered Studies 10/27/20 11:28 CT angio chest PE protocol Stat Thyroid: Imaged portions of the thyroid gland are normal in size and attenuation. A 2.9 x 2.2 cm nodule is again seen inferior to the left lobe. Thoracic aorta: The thoracic aorta is normal in caliber and demonstrates standard 3-vessel arch anatomy. No dissection is seen. Pulmonary vasculature: The pulmonary trunk is dilated measuring 3.6 cm in diameter. This suggests pulmonary artery hypertension. There are no filling defects identified in main, lobar, or segmental pulmonary branches to suggest pulmonary embolus. Heart: The heart is normal in size and without pericardial effusion. Lungs and pleural spaces: Evaluation of the lung parenchyma is modestly degraded by motion artifact. There is no airspace consolidation or pleural effusion. The trachea and central airways are clear. Dependent atelectasis is noted. Mediastinum: There is no mediastinal lymphadenopathy. Margarette: Clear. Axillae: There is no axillary lymphadenopathy. There is a moderate hiatal hernia. The liver is steatotic. Cholecystectomy clips are noted Partially visualized upper abdominal viscera is within normal limits. Skeletal structures: The skeletal structures are osteopenic. Degenerative change is noted in the shoulders and thoracic spine. No lytic or blastic bony lesions are seen. IMPRESSION: 1. There is no evidence of pulmonary embolus in the main, lobar, or segmental pulmonary arteries. 2. There is no airspace consolidation or pleural effusion. 3. Hepatic steatosis. 4. A 2.9 cm nodule is again seen below the left lobe of the thyroid. If not already performed, nonemergent/outpatient ultrasound is again recommended for further evaluation. 5. Hiatal hernia. Hospital Course (1) Asthma exacerbation: per Dr. Peraza's notes: moderate persistent asthma with acute exacerbation. Failed outpatient therapy. She has improved on intravenous steroids and will be de-escalated to prednisone taper tomorrow. Pulm following and making treatment recommendations. To get spiriva at discharge. Cont bronchodilator therapy PRN. follow-up with outpatient pulmonology and consider biologic therapy at that time if not improved. Cont doxycycline. Cont flutter valve and incentive spirometry. Cont benzonatate 100mg PO TID and hycodan cough syrup prn. Cont Singulair per home regimen. 10/31 stable for discharge plan: continue Advair start Spiriva complete Prednisone taper complete Guiaf-DM arrange for home nebulizer ff up with PCP in 1 week ff up with Pulmonary in 2 weeks (2) Abnormal finding on CT scan: Please refer to full report in the Ordered Studies section above Hepatic steatosis. A 2.9 cm nodule is again seen below the left lobe of the thyroid. If not already performed, nonemergent/outpatient ultrasound is again recommended for further evaluation. Further work up, management, and ff up as outpatient (3) Thrush: Nystatin swish (4) Depression: cont fluoxetine (5) Sleep apnea: cont CPAP QHS (6) Hypertension: lisinopril discontinued by previous provider and replaced with HCTZ 12.5mg PO daily. Cont this and BMP in two weeks with PCP. BP at goal. (7) DVT prophylaxis: Lovenox Full Dispo-d.c home with home health [facility] ff ups per above [facility] Total Time Total Time Spent Total Time Spent (In Minutes): 45 minutes Discharge Plan Discharge Items Patient Disposition: Home - Home Health Services Reason For Visit: ASTHMA EXAC Discharge Diagnosis: ACUTE BRONCHITIS, ACUTE ASTHMA EXACERBATION Activity: As commented below Activity Comment: GRADUALLY TOLERATED Lifting: Wait until after follow-up appointment Exercise/Sports: Wait until after follow-up appointment Driving/Machine Use: NO DRIVING UNTIL RE-EVALUATED AND ALLOWED BY PRIMARY CARE PHYSICIAN Non-emergency contact: Primary Care Provider Call non-emergency contact if: you have any medication questions, your symptoms worsen, your pain is not controlled, your pain is worsening, your pain is unusual for you, your pain is concerning for you and you have a fever Follow-up/Referrals: Henny Santiago MD [Physician] - bannerEfra briceño MD [Primary Care Provider] - 11/06/20 8:00 am (PRIMARY CARE PHYSICIAN ON FOLLOW UP WILL BE DR. NAVEED CAMERON ) Diet: Heart Healthy Addtl Attending Provider Instructions: PLEASE REVIEW YOUR NEW MEDICATION LIST AND FOLLOW INSTRUCTIONS CAREFULLY. CALL PRIMARY CARE PHYSICIAN OR RETURN TO THE ER IMMEDIATELY IF WITH WORSENING OF SYMPTOMS. FOLLOW UP WITH PRIMARY CARE PHYSICIAN NEXT WEEK, NOVEMBER 06, 2020 OUTLINED ABOVE. FOLLOW UP WITH LUNG SPECIALIST DR. SANTIAGO IN 2 WEEKS. PLEASE CALL HIS CLINIC FOR AN APPOINTMENT. CONTACT INFORMATION OUTLINED ABOVE. Pending Studies at Discharge: No Stand-Alone Forms: [employer], Smoking Cessation Medications and DC Order Prescriptions: New nystatin 100,000 unit/mL Suspension 5 ml PO QID 4 Days Qty: 80 RF: 1 doxycycline hyclate 100 mg Capsule 100 mg PO Q12H Qty: 4 RF: 0 ipratropium-albuterol 0.5 mg-3 mg(2.5 mg base)/3 mL Solution For Nebulization 3 ml NEB TID Qty: 180 RF: 2 hydrochlorothiazide 25 mg Tablet 12.5 mg PO QAM Qty: 30 RF: 2 dextromethorphan-guaifenesin 10-100 mg/5 mL Syrup 5 ml PO Q6H 7 Days Qty: 140 RF: 0 benzonatate [Tessalon Perles] 100 mg Capsule 100 mg PO TID Qty: 21 RF: 1 hydrocodone-homatropine [Hydromet] 5-1.5 mg/5 mL Syrup 5 ml PO Q8H PRN (Reason: cough) 7 Days Qty: 70 RF: 0 Spiriva Respimat 1.25 mcg/actuation mist 2 puff inhalation BID Qty: 4 RF: 2 prednisone 20 mg tablet 20 mg PO UD Qty: 9 RF: 0 sennosides-docusate sodium [Senokot-S] 8.6-50 mg tablet 1 tab-cap PO DAILY Qty: 10 RF: 1 Continued omeprazole 20 mg capsule,delayed release(DR/EC) 20 mg PO QAM RF: 0 sodium chloride [Saline Nasal] 0.65 % aerosol,spray 2 sprays INTNAS QID PRN (Reason: Congestion) RF: 0 calcium carbonate 500 mg calcium (1,250 mg) tablet,chewable 1,000 mg PO QPM RF: 0 fluticasone propionate [Flonase Allergy Relief] 50 mcg/actuation spray,suspension 1 sprays INTNAS BID RF: 0 azelastine 0.15 % (205.5 mcg) spray,non-aerosol 1 sprays INTNAS BID RF: 0 montelukast [Singulair] 10 mg tablet 10 mg PO QAM RF: 0 albuterol sulfate 90 mcg/actuation Hfa Aerosol Inhaler 1 puff INHALATION QID PRN (Reason: sob) RF: 0 Advair HFA 230-21 mcg/actuation Hfa Aerosol Inhaler 2 puff INHALATION BID RF: 0 acetaminophen [Tylenol Arthritis] 650 mg Tablet Extended Release 1,300 mg PO Q12H PRN (Reason: Pain) RF: 0 methylprednisolone 4 mg tablets,dose pack 4 mg PO DIRECTED RF: 0 polyethylene glycol 3350 [Miralax] 17 gram/dose Powder 17 g PO DAILY PRN (Reason: Constipation) RF: 0 fluoxetine 40 mg capsule 40 mg PO DAILY RF: 0 Discontinued lisinopril 20 mg Tablet 20 mg PO QAM RF: 0 amoxicillin-pot clavulanate 875-125 mg tablet 1 tab PO BID RF: 0 Colace Clear 50 mg capsule 50 mg PO QAM RF: 0 Discharge Orders: Discharge Order (Routine); Ordered 11/01/20 Ordered By: Sher Coats Admission Data Admit Date/Time: 10/27/20 13:35 Attending Provider: Iesha Peraza Admit Provider: Kota Sena Primary Care Provider: Efra Romero Other Providers: Kota Sena ; Henny Santiago
== END 2020-11-01 18:38 | disposition home health service (06) | DRG 202 ==
LOC: ED 11:03 → 2S 13:35 → SUATTDRO 13:35 → 2S 14:40 → 3N 10-31 18:13